=== PATIENT | male | born 1980 | race Caucasian/White ===

== ENCOUNTER → 2017-05-27 | Outpatient (CLI) | payer BC | END | disposition home or self-care (01) | LOC: RT 10:07 | PROVIDERS: ATTEND Physician Assistant Medical | DX: G47.33 Obstructive sleep apnea (adult) (pediatric) (principal); R06.83 Snoring; R45.1 Restlessness and agitation | CPT/HCPCS: G0399 ==

== ENCOUNTER → 2017-08-14 | Outpatient (CLI) | payer BC | END | disposition home or self-care (01) | LOC: RT 18:34 | PROVIDERS: ATTEND Family Medicine | DX: G47.33 Obstructive sleep apnea (adult) (pediatric) (principal) | CPT/HCPCS: 95811 ==

== ENCOUNTER 2022-01-19 02:07 | Inpatient (IN) | payer BC ==
[~2022-01-19] VITALS: Ht 185.4 cm; Wt 97.7 kg
[~2022-01-19 02:07] MED LIST: AMLO-187 PO; ASPI-886 PO; CARV6.2511 PO; ISOS10TA2 PO; LOSA-73 PO; THIA100T22 PO
--- NOTE | 2022-01-19 02:26 | PHYS DOC ---
Past Medical History Past Medical History: Other Additional Past Medical Histor: Sleep Apnea Past Surgical History: Other Additional Past Surgical Histo: HERNIA REPAIR Smoking Status: Current Every Day Smoker Alcohol Use: Heavy General Adult HPI: HPI: Patient is a 41 year old male who is on no prescription medications presents with a chief complaint of shortness of breath. Patient states shortness of breath started around 2300hrs. Patient was having difficult sleeping tonight. States He could not get comfortable and could not catch his breath. Patient denies any associated chest pain. Patient is a smoker with a chronic cough. Denies any fevers or chills. Patient was noted to be tachycardic with a rate of 106bmp. His blood pressure was 272/151. Review of Systems: Review of Systems: Constitutional: Denies fever or chills. [] Eyes: Denies change in visual acuity. [] HENT: Denies nasal congestion or sore throat. [] Respiratory: Denies cough Positive shortness of breath. [] Cardiovascular: Denies chest pain or edema. [] GI: Denies abdominal pain, nausea, vomiting, bloody stools or diarrhea. [] : Denies dysuria. [] Musculoskeletal: Denies back pain or joint pain. [] Integument: Denies rash. [] Neurologic: Denies headache, focal weakness or sensory changes. [] Endocrine: Denies polyuria or polydipsia. [] Lymphatic: Denies swollen glands. [] Psychiatric: Denies depression or anxiety. [] Heart Score: C/O Chest Pain: N/A Risk Factors: Risk Factors: DM, Current or recent (<one month) smoker, HTN, HLP, family history of CAD, obesity. Risk Scores: Score 0 - 3: 2.5% MACE over next 6 weeks - Discharge Home Score 4 - 6: 20.3% MACE over next 6 weeks - Admit for Clinical Observation Score 7 - 10: 72.7% MACE over next 6 weeks - Early Invasive Strategies Allergies: Allergies: Allergies Coded Allergies Type Severity Reaction Last Updated Verified No Known Drug Allergies 01/16/21 No Physical Exam: PE: Constitutional: Well developed, well nourished, no acute distress, non-toxic appearance. [] HENT: Normocephalic, atraumatic, bilateral external ears normal, oropharynx moist, no oral exudates, nose normal. [] Eyes: PERRLA, EOMI, conjunctiva normal, no discharge. [] Neck: Normal range of motion, no tenderness, supple, no stridor. [] Cardiovascular:Heart rate regular rhythm, no murmur [] Lungs & Thorax: Bilateral breath sounds clear to auscultation [] Abdomen: Bowel sounds normal, soft, no tenderness, no masses, no pulsatile masses. [] Skin: Warm, dry, no erythema, no rash. [] Back: No tenderness, no CVA tenderness. [] Extremities: No tenderness, no cyanosis, no clubbing, ROM intact, bilateral pedal edema. [] Neurologic: Alert and oriented X 3, normal motor function, normal sensory function, no focal deficits noted. [] Psychologic: Affect normal, judgement normal, mood normal. [] EKG: EKG: Performed at 221 Rate 101 Normal sinus rhythm No ST elevation No ST depression No acute [place] [] Radiology/Procedures: Radiology/Procedures: [] Course & Med Decision Making: Course & Med Decision Making Pertinent Labs and Imaging studies reviewed. (See chart for details) [] Patient was evaluated for chief complaint. Work-up consisted of laboratory analysis radiologic imaging and EKG. Results reviewed and discussed with patient Patient initial blood pressure on arrival greater than 200/100 systolic. Patient was treated with labetalol 20 mg with improvement of blood pressures to the 170s post treatment. Patient's initial heart rate greater than 100 bpm post labetalol heart rate 82. Patient's troponin noted to be 120 repeat 103-- treated with asa 324mg did not treat with heprin. BNP greater than 4000-- treated with lasix. Patient admitted to the hospitalist with cardiology consult. Kyaw Disclaimer: Kywa Disclaimer: This electronic medical record was generated, in whole or in part, using a voice recognition dictation system. Departure Departure Impression: Primary Impression: CHF (congestive heart failure) Additional Impressions: Dyspnea Elevated troponin Elevated brain natriuretic peptide (BNP) level Hypertension Disposition: 09 ADMITTED INPATIENT Admitting Physician: MEHRDAD Condition: IMPROVED Referrals: NO PCP (PCP) RAYMOND GOETZ DO Jan 19, 2022 02:26
[2022-01-19] MEDS ORDERED: LABETALOL 20 MG/4 ML DISP.SYRIN. IVP ONE (02:30)
[2022-01-19 02:38] LABS: BASO # 0.1 x10^3/uL (0.0-0.2); BASO % 1 % (0-3); EOS # 0.1 x10^3/uL (0.0-0.7); EOS % 2 % (0-3); HEMATOCRIT 39.9 % (39.0-53.0); HEMOGLOBIN 13.7 g/dL (13.0-17.5); LYMPH # 1.2 x10^3/uL (1.0-4.8); LYMPH % 18 % (24-48); MEAN CORPUSCULAR HEMOGLOBIN 36 pg (25-35); MEAN CORPUSCULAR HGB CONC 34 g/dL (31-37); MEAN CORPUSCULAR VOLUME 104 fL (79-100); MONO # 0.5 x10^3/uL (0.0-1.1); MONO % 8 % (0-9); NEUT # 4.4 x10^3/uL (1.8-7.7); NEUT % 70 % (31-73); PLATELET COUNT 147 x10^3/uL (140-400); RED BLOOD COUNT 3.85 x10^6/uL (4.30-5.70); RED CELL DISTRIBUTION WIDTH 13.6 % (11.5-14.5); WHITE BLOOD COUNT 6.3 x10^3/uL (4.0-11.0)
[2022-01-19 02:48] LABS: CALCIUM 8.8 mg/dL (8.5-10.1); CREATININE 1.2 mg/dL (0.7-1.3); GFR 66.4; POTASSIUM 3.5 mmol/L (3.5-5.1)
--- NOTE | 2022-01-19 02:50 | RAD ---
EXAMINATION: XR CHEST 1V CLINICAL HISTORY: Shortness of breath. EXAM DATE/TIME: 01/19/2022 2:30 AM COMPARISON: 01/16/2021 FINDINGS: Lines, Tubes, and Devices: None. Cardiomediastinal Silhouette: Prominent cardiac silhouette, likely accentuated by AP portable techniq ue. Lungs and Pleura: Mild interstitial and multifocal patchy alveolar opacities, similar to slightly inc reased compared to prior study. No evidence of pleural effusion or pneumothorax. Bones and Soft Tissues: No acute osseous abnormality. IMPRESSION: Interstitial and multifocal patchy alveolar opacities, possibly related to edema and/or atypical/shannan l pneumonia. Electronically signed by: Terrance Phillips DO (01/19/2022 2:47 AM) YULISA
[2022-01-19 02:53] LABS: ALBUMIN 3.2 g/dL (3.4-5.0); ALBUMIN/GLOBULIN RATIO 0.7 (1.0-1.7); TOTAL BILIRUBIN 0.6 mg/dL (0.2-1.0); TOTAL PROTEIN 7.5 g/dL (6.4-8.2)
[2022-01-19] MEDS ORDERED: FUROSEMIDE 40 MG/4 ML VIAL. IVP SCH ×2 (03:39→09:00)
[2022-01-19 03:56] LABS: PROTHROMBIN TIME PATIENT 12.8 SEC (11.7-14.0)
[2022-01-19] MEDS ORDERED: ASPIRIN 325 MG TABLET ONE (05:29)
[2022-01-19] MEDS ORDERED: ASPIRIN CHEWABLE 81 MG TABLET. PO ONE (05:30)
[2022-01-19 06:06] LABS: RBC,URINE TNTC /HPF (0-2); WBC,URINE 0 /HPF (0-4)
[2022-01-19 06:07] LABS: BACTERIA,URINE 0 /HPF (0-FEW); HYALINE CASTS, URINE OCCASIONAL /HPF
[2022-01-19 06:08] VITALS: BP 201/118
[2022-01-19 07:00] VITALS: BP 177/119
--- NOTE | 2022-01-19 07:13 | EKG ---
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
--- NOTE | 2022-01-19 07:27 | PDOC1 ---
History and Physical Date of Admission Date of Admission DATE: 01/19/22 TIME: 07:14 Identification/Chief Complaint Chief Complaint Chest pain Source Source: Chart review, Patient History of Present Illness History of Present Illness Mr Noland is a 41 year old male w/ PMHx SIMRAN, overweight, smoker, heavy ETOH use who is on no prescription medications presents with a chief complaint of shortness of breath. Started around 2300hrs suddenly, causing difficulty with sleep. Unable to lay flat to catch his breath. No chest pain. Chronic cough he endorses to be due to smoking. For a couple of weeks he has been feeling unwell with posterior headaches and fatigue. He denies any kind of significant cough, URI symptoms, fever, chills, sweats, nausea, vomiting. 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 He drinks a "few shots" every evening. Has not seen a physician in several years. Smokes 1ppd. Lives at home with his and 8 yo daughter. He was hospitalized for the same 1 year ago. Patient was noted to be tachycardic with a rate of 106bmp. His blood pressure was 272/151. Labs with WBC 6.3, Hb 13.7 with MCV 104, platelets 147, INR 1, NA 135, K3.5, BUN 15, CR 1.2, glucose 128, calcium 8.8, bilirubin 0.6, AST 50, ALT 46, alkaline phosphatase 110, albumin 3.2, NT proBNP is 4555, initial high-sensitivity troponin was 122 follow-up was 103. Chest radiograph with interstitial and multifocal patchy alveolar opacities Given IV Lasix IV labetalol and admitted for further care. Past Medical History Cardiovascular: HTN Pulmonary: Other Psych: Anxiety, Addictions, Depression Past Surgical History Past Surgical History Reviewed Past Surgical History: No pertinent history Family History Family History Reviewed Family History: Diabetes, Hypertension Social History Smoke: 1 pack per day ALCOHOL: heavy Drugs: None Current Problem List Problem List Problems Medical Problems: (1) Hypertension Status: Acute Current Medications Current Medications Current Medications Labetalol HCl (Normodyne Iv Push) 20 mg 1X ONCE IVP Last administered on 01/19/22at 02:42; Start 01/19/22 at 02:30; Stop 01/19/22 at 02:31; Status DC Furosemide (Lasix) 40 mg DAILY IVP Last administered on 01/19/22at 05:34; Start 01/19/22 at 03:39 Aspirin (Aspirin Chewable) 324 mg 1X ONCE PO Last administered on 01/19/22at 05:36; Start 01/19/22 at 05:30; Stop 01/19/22 at 05:31; Status DC Aspirin (Galileo Aspirin) 325 mg STK-MED ONCE .ROUTE ; Start 01/19/22 at 05:29; Stop 01/19/22 at 05:29; Status DC Active Scripts Active Reported No Known Medications Prior To Admisstion (Info) Each 1 Each Allergies Allergies: Coded Allergies: No Known Drug Allergies (Unverified , 01/16/21) Vitals Vitals Vital Signs Date Time Temp Pulse Resp B/P (MAP) Pulse Ox O2 Delivery O2 Flow Rate FiO2 01/19/22 06:08 98.1 83 20 201/118 (145) 98 Room Air 98.1 Labs Labs Laboratory Tests Test 01/19/22 02:32 01/19/22 04:59 01/19/22 05:40 White Blood Count 6.3 x10^3/uL (4.0-11.0) Red Blood Count 3.85 x10^6/uL (4.30-5.70) Hemoglobin 13.7 g/dL (13.0-17.5) Hematocrit 39.9 % (39.0-53.0) Mean Corpuscular Volume 104 fL (79-100) Mean Corpuscular Hemoglobin 36 pg (25-35) Mean Corpuscular Hemoglobin Concent 34 g/dL (31-37) Red Cell Distribution Width 13.6 % (11.5-14.5) Platelet Count 147 x10^3/uL (140-400) Neutrophils (%) (Auto) 70 % (31-73) Lymphocytes (%) (Auto) 18 % (24-48) Monocytes (%) (Auto) 8 % (0-9) Eosinophils (%) (Auto) 2 % (0-3) Basophils (%) (Auto) 1 % (0-3) Neutrophils # (Auto) 4.4 x10^3/uL (1.8-7.7) Lymphocytes # (Auto) 1.2 x10^3/uL (1.0-4.8) Monocytes # (Auto) 0.5 x10^3/uL (0.0-1.1) Eosinophils # (Auto) 0.1 x10^3/uL (0.0-0.7) Basophils # (Auto) 0.1 x10^3/uL (0.0-0.2) Prothrombin Time 12.8 SEC (11.7-14.0) Prothromb Time International Ratio 1.0 (0.8-1.1) Activated Partial Thromboplast Time 30 SEC (24-38) Sodium Level 135 mmol/L (136-145) Potassium Level 3.5 mmol/L (3.5-5.1) Chloride Level 100 mmol/L (98-107) Carbon Dioxide Level 25 mmol/L (21-32) Anion Gap 10 (6-14) Blood Urea Nitrogen 15 mg/dL (8-26) Creatinine 1.2 mg/dL (0.7-1.3) Estimated GFR (Cockcroft-Gault) 66.4 BUN/Creatinine Ratio 13 (6-20) Glucose Level 128 mg/dL (70-99) Calcium Level 8.8 mg/dL (8.5-10.1) Total Bilirubin 0.6 mg/dL (0.2-1.0) Aspartate Amino Transf (AST/SGOT) 50 U/L (15-37) Alanine Aminotransferase (ALT/SGPT) 46 U/L (16-63) Alkaline Phosphatase 110 U/L (46-116) Troponin I High Sensitivity 120 ng/L (4-75) 103 ng/L (4-75) RE-Chh-A-Type Natriuretic Peptide 4555 pg/mL (0-124) Total Protein 7.5 g/dL (6.4-8.2) Albumin 3.2 g/dL (3.4-5.0) Albumin/Globulin Ratio 0.7 (1.0-1.7) Urine Collection Type Unknown Urine Color (Auto) Light orange Urine Turbidity Hazy Urine pH (Auto) 7.5 (<5.0-8.0) Urine Specific [place] 1.016 (1.000-1.030) Urine Protein (Auto) 200 mg/dL (Negative) Urine Glucose (Auto)(UA) Negative mg/dL (Negative) Urine Ketones (Auto) Negative mg/dL (Negative) Urine Blood (Auto) Large (Negative) Urine Nitrite Negative (Negative) Urine Bilirubin (Auto) Negative (Negative) Urine Urobilinogen (Auto) Normal mg/dL (Normal) Urine Leukocyte Esterase (Auto) Negative (Negative) Urine RBC Tntc /HPF (0-2) Urine WBC 0 /HPF (0-4) Urine Bacteria 0 /HPF (0-FEW) Urine Hyaline Casts Occasional /HPF Urine Mucus Slight /LPF Laboratory Tests Test 01/19/22 02:32 01/19/22 04:59 01/19/22 05:40 White Blood Count 6.3 x10^3/uL (4.0-11.0) Red Blood Count 3.85 x10^6/uL (4.30-5.70) Hemoglobin 13.7 g/dL (13.0-17.5) Hematocrit 39.9 % (39.0-53.0) Mean Corpuscular Volume 104 fL (79-100) Mean Corpuscular Hemoglobin 36 pg (25-35) Mean Corpuscular Hemoglobin Concent 34 g/dL (31-37) Red Cell Distribution Width 13.6 % (11.5-14.5) Platelet Count 147 x10^3/uL (140-400) Neutrophils (%) (Auto) 70 % (31-73) Lymphocytes (%) (Auto) 18 % (24-48) Monocytes (%) (Auto) 8 % (0-9) Eosinophils (%) (Auto) 2 % (0-3) Basophils (%) (Auto) 1 % (0-3) Neutrophils # (Auto) 4.4 x10^3/uL (1.8-7.7) Lymphocytes # (Auto) 1.2 x10^3/uL (1.0-4.8) Monocytes # (Auto) 0.5 x10^3/uL (0.0-1.1) Eosinophils # (Auto) 0.1 x10^3/uL (0.0-0.7) Basophils # (Auto) 0.1 x10^3/uL (0.0-0.2) Prothrombin Time 12.8 SEC (11.7-14.0) Prothromb Time International Ratio 1.0 (0.8-1.1) Activated Partial Thromboplast Time 30 SEC (24-38) Sodium Level 135 mmol/L (136-145) Potassium Level 3.5 mmol/L (3.5-5.1) Chloride Level 100 mmol/L (98-107) Carbon Dioxide Level 25 mmol/L (21-32) Anion Gap 10 (6-14) Blood Urea Nitrogen 15 mg/dL (8-26) Creatinine 1.2 mg/dL (0.7-1.3) Estimated GFR (Cockcroft-Gault) 66.4 BUN/Creatinine Ratio 13 (6-20) Glucose Level 128 mg/dL (70-99) Calcium Level 8.8 mg/dL (8.5-10.1) Total Bilirubin 0.6 mg/dL (0.2-1.0) Aspartate Amino Transf (AST/SGOT) 50 U/L (15-37) Alanine Aminotransferase (ALT/SGPT) 46 U/L (16-63) Alkaline Phosphatase 110 U/L (46-116) Troponin I High Sensitivity 120 ng/L (4-75) 103 ng/L (4-75) OD-Htd-S-Type Natriuretic Peptide 4555 pg/mL (0-124) Total Protein 7.5 g/dL (6.4-8.2) Albumin 3.2 g/dL (3.4-5.0) Albumin/Globulin Ratio 0.7 (1.0-1.7) Urine Collection Type Unknown Urine Color (Auto) Light orange Urine Turbidity Hazy Urine pH (Auto) 7.5 (<5.0-8.0) Urine Specific [place] 1.016 (1.000-1.030) Urine Protein (Auto) 200 mg/dL (Negative) Urine Glucose (Auto)(UA) Negative mg/dL (Negative) Urine Ketones (Auto) Negative mg/dL (Negative) Urine Blood (Auto) Large (Negative) Urine Nitrite Negative (Negative) Urine Bilirubin (Auto) Negative (Negative) Urine Urobilinogen (Auto) Normal mg/dL (Normal) Urine Leukocyte Esterase (Auto) Negative (Negative) Urine RBC Tntc /HPF (0-2) Urine WBC 0 /HPF (0-4) Urine Bacteria 0 /HPF (0-FEW) Urine Hyaline Casts Occasional /HPF Urine Mucus Slight /LPF Images Images Chest radiograph AP only: Lines, Tubes, and Devices: None. Cardiomediastinal Silhouette: Prominent cardiac silhouette, likely accentuated by AP portable technique. Lungs and Pleura: Mild interstitial and multifocal patchy alveolar opacities, similar to slightly increased compared to prior study. No evidence of pleural effusion or pneumothorax. Bones and Soft Tissues: No acute osseous abnormality. IMPRESSION: Interstitial and multifocal patchy alveolar opacities, possibly related to edema and/or atypical/viral pneumonia. VTE Prophylaxis Ordered VTE Prophylaxis Devices: No VTE Pharmacological Prophylaxi: No Assessment/Plan Assessment/Plan Hypertensive emergency - likely multifactorial. Counseled on smoking and drinking cessation, CPAP compliance. Labetalol prn, hydralazine prn gtt. Start lasix IV, amlodipine, nitrate NSTEMI - will trend troponins, likely type II demand ischemia associated with HTN crisis Pulmonary edema - no concern for COVID 19, this looks to be acute CHF due to HTN emergency Smoker - counseled on cessation, offered nicotine patch Heavy ETOH use - no history of withdrawal or seizures, will place on CIWA as a precaution. Counseled on cessation Mild Transaminitis - likely from HTN emergency, congestive hepatopathy vs alcoholic hepatitis Macrocytosis - likely ETOH related, normal B12 and TSH last year SIMRAN - ok for home CPAP FEN - Regular diet PPX - heparin FULL CODE Dispo - inpatient for above Justifications for Admission Other Justification JOHNNA JIMÉNEZ MD Jan 19, 2022 07:27
[2022-01-19] MEDS ORDERED: LABETALOL 20 MG/4 ML DISP.SYRIN. IVP PRN (07:30)
[2022-01-19] MEDS ORDERED: ACETAMINOPHEN 325 MG TABLET. PO PRN (07:30)
[2022-01-19] MEDS ORDERED: ONDANSETRON PF 4 MG/2 ML VIAL. IVP PRN (07:30)
[2022-01-19] MEDS ORDERED: NICOTINE 21MG PATCH. TD PRN (07:30)
[2022-01-19] MEDS ORDERED: hydrALAZINE 20 MG/ML VIAL. IVP PRN (07:30)
[2022-01-19] MEDS: NITROGLYCERIN OINT 1 GM PACKET. TP SCH ×3 (08:21→18:00)
[2022-01-19] MEDS ORDERED: MULTIVITAMIN with MINERAL TABLET. PO SCH (09:00)
[2022-01-19] MEDS ORDERED: THIAMINE 100 MG TABLET. PO SCH (09:00)
[2022-01-19] MEDS ORDERED: FOLIC ACID 1 MG TABLET. PO SCH (09:00)
--- NOTE | 2022-01-19 10:37 | RAD ---
EXAM: Corral scale and color Doppler renal artery sonogram. HISTORY: Hypertensive crisis. TECHNIQUE: Corral scale and color Doppler sonographic imaging the kidneys and renal arteries with spect ral analysis was performed. COMPARISON: None. FINDINGS: The right kidney and right renal artery are obscured due to bowel gas. The left kidney is n ormal in size. There is no hydronephrosis or solid or cystic left renal lesion. There are normal left renal artery peak systolic velocities and renal artery to aorta velocity ratios. There is incidental hepatic steatosis. IMPRESSION: 1. Unremarkable grayscale evaluation of the left kidney and no evidence of left renal artery stenosis . 2. Obscured right kidney and renal artery. 3. Hepatic steatosis. Electronically signed by: Melody Umaña MD (01/19/2022 10:34 AM) [facility]
[2022-01-19] MEDS ORDERED: NICOTINE 21MG PATCH. TD SCH (10:45)
[2022-01-19 11:00] VITALS: BP 144/96
[2022-01-19] MEDS ORDERED: hydroCHLOROthiazide 12.5 MG TABLET PO ONE (11:00)
--- NOTE | 2022-01-19 11:20 | PDOC2 ---
GABRIELA COE SPRAY BLENDER 01/19/22 1120: CARDIAC CONSULT DATE OF CONSULT Date of Consult DATE: 01/19/22 TIME: 10:51 REASON FOR CONSULT Reason for Consult: CHF, elevated trop REFERRING PHYSICIAN Referring Physician: Yusuf SOURCE Source: Chart review, Patient HISTORY OF PRESENT ILLNESS HISTORY OF PRESENT ILLNESS This is a pleasant 41 yo male admitted for complains of shortness of breath. Reports that he does have SOA in the last few days but pronounced last night to a point that he is not able to lay flat and has PND. Denies any chest pain, palpitations. No nausea or vomiting and denies any leg swelling. He is supposed to take BP meds but he stopped at least 6 months ago as he failed to make a refill. He drinks vodka and smokes tobacco and has not had any ischemic workup in the past. PAST MEDICAL HISTORY Cardiovascular: HTN Psych: Anxiety PAST SURGICAL HISTORY Past Surgical History: Hernia Repair FAMILY HISTORY Family History: Hypertension SOCIAL HISTORY Smoke: 1 pack per day ALCOHOL: heavy Drugs: None Lives: with Family CURRENT MEDICATIONS CURRENT MEDICATIONS Current Medications Medications (Trade) Dose Ordered Sig/Catherine Route PRN Reason Start Time Stop Time Status Last Admin Dose Admin Labetalol HCl (Normodyne Iv Push) 20 mg 1X ONCE IVP 01/19/22 02:30 01/19/22 02:31 DC 01/19/22 02:42 Furosemide (Lasix) 40 mg DAILY IVP 01/19/22 03:39 01/19/22 07:32 DC 01/19/22 05:34 Aspirin (Aspirin Chewable) 324 mg 1X ONCE PO 01/19/22 05:30 01/19/22 05:31 DC 01/19/22 05:36 Nitroglycerin (Nitro-Bid Oint) 1 inch Q6HRS TP 01/19/22 07:30 01/19/22 08:21 Furosemide (Lasix) 40 mg [id number] IVP 01/19/22 09:00 01/19/22 10:36 DC 01/19/22 09:02 Amlodipine Besylate (Norvasc) 10 mg DAILY PO 01/19/22 09:00 01/19/22 09:02 Multivitamins (Thera M Plus) 1 tab DAILY PO 01/19/22 09:00 01/19/22 09:04 Folic Acid (Folic Acid) 1 mg DAILY PO 01/19/22 09:00 01/19/22 09:01 Thiamine Mononitrate (Vitamin B-1) 100 mg DAILY PO 01/19/22 09:00 01/19/22 09:01 ALLERGIES ALLERGIES: Coded Allergies: No Known Drug Allergies (Unverified , 01/16/21) ROS Review of System 14 point ROS evaluated with pertinent positives noted per HPI PHYSICAL EXAM General: Alert, Oriented X3, Cooperative, No acute distress HEENT: Atraumatic, Mucous membr. moist/pink Lungs: Clear to auscultation, Normal air movement Heart: Regular rate (SR), Normal S1, Normal S2, No murmurs, Other (S4) Abdomen: Soft, No tenderness Extremities: No cyanosis, No edema Skin: No breakdown, No significant lesion Neuro: Normal speech, Sensation intact Psych/Mental Status: Mental status NL, Mood NL MUSCULOSKELETAL: Full range of motion without pain VITALS/I&O VITALS/I&O: Vital Signs Date Time Temp Pulse Resp B/P (MAP) Pulse Ox O2 Delivery O2 Flow Rate FiO2 01/19/22 09:02 86 117/119 01/19/22 07:00 97.9 18 98 97.9 01/19/22 06:08 Room Air I & O 01/18/22 01/18/22 01/19/22 14:59 22:59 06:59 Output Total 300 ml Balance -300 ml LABS Lab: Laboratory Tests Test 01/19/22 02:32 01/19/22 04:59 01/19/22 05:40 White Blood Count 6.3 x10^3/uL (4.0-11.0) Red Blood Count 3.85 x10^6/uL (4.30-5.70) L Hemoglobin 13.7 g/dL (13.0-17.5) Hematocrit 39.9 % (39.0-53.0) Mean Corpuscular Volume 104 fL (79-100) H Mean Corpuscular Hemoglobin 36 pg (25-35) H Mean Corpuscular Hemoglobin Concent 34 g/dL (31-37) Red Cell Distribution Width 13.6 % (11.5-14.5) Platelet Count 147 x10^3/uL (140-400) Neutrophils (%) (Auto) 70 % (31-73) Lymphocytes (%) (Auto) 18 % (24-48) L Monocytes (%) (Auto) 8 % (0-9) Eosinophils (%) (Auto) 2 % (0-3) Basophils (%) (Auto) 1 % (0-3) Neutrophils # (Auto) 4.4 x10^3/uL (1.8-7.7) Lymphocytes # (Auto) 1.2 x10^3/uL (1.0-4.8) Monocytes # (Auto) 0.5 x10^3/uL (0.0-1.1) Eosinophils # (Auto) 0.1 x10^3/uL (0.0-0.7) Basophils # (Auto) 0.1 x10^3/uL (0.0-0.2) Prothrombin Time 12.8 SEC (11.7-14.0) Prothrombin Time INR 1.0 (0.8-1.1) Activated Partial Thromboplast Time 30 SEC (24-38) Sodium Level 135 mmol/L (136-145) L Potassium Level 3.5 mmol/L (3.5-5.1) Chloride Level 100 mmol/L (98-107) Carbon Dioxide Level 25 mmol/L (21-32) Anion Gap 10 (6-14) Blood Urea Nitrogen 15 mg/dL (8-26) Creatinine 1.2 mg/dL (0.7-1.3) Estimated GFR (Cockcroft-Gault) 66.4 BUN/Creatinine Ratio 13 (6-20) Glucose Level 128 mg/dL (70-99) H Calcium Level 8.8 mg/dL (8.5-10.1) Total Bilirubin 0.6 mg/dL (0.2-1.0) Aspartate Amino Transferase (AST) 50 U/L (15-37) H Alanine Aminotransferase (ALT) 46 U/L (16-63) Alkaline Phosphatase 110 U/L (46-116) Troponin I High Sensitivity 120 ng/L (4-75) H 103 ng/L (4-75) H WK-Jel-J-Type Natriuretic Peptide 4555 pg/mL (0-124) H Total Protein 7.5 g/dL (6.4-8.2) Albumin 3.2 g/dL (3.4-5.0) L Albumin/Globulin Ratio 0.7 (1.0-1.7) L Urine Collection Type Unknown Urine Color (Auto) Light orange Urine Turbidity Hazy Urine pH (Auto) 7.5 (<5.0-8.0) Urine Specific [place] 1.016 (1.000-1.030) Urine Protein (Auto) 200 mg/dL (Negative) Urine Glucose (Auto)(UA) Negative mg/dL (Negative) Urine Ketones (Auto) Negative mg/dL (Negative) Urine Blood (Auto) Large (Negative) Urine Nitrite Negative (Negative) Urine Bilirubin (Auto) Negative (Negative) Urine Urobilinogen (Auto) Normal mg/dL (Normal) Urine Leukocyte Esterase (Auto) Negative (Negative) Urine RBC Tntc /HPF (0-2) Urine WBC 0 /HPF (0-4) Urine Bacteria 0 /HPF (0-FEW) Urine Hyaline Casts Occasional /HPF Urine Mucus Slight /LPF Laboratory Tests 01/19/22 02:32 Laboratory Tests 01/19/22 02:32 ECHOCARDIOGRAM ECHOCARDIOGRAM <Conclusion> The left ventricular systolic function is normal and the ejection fraction is within normal range. The Ejection Fraction is 60-65%. There is normal LV segmental wall motion. The ascending aorta is mildly dilated measuring 3.51 cm. DATE: 01/17/21 [id number] ASSESSMENT/PLAN ASSESSMENT/PLAN 1. Acute on chronic diastolic CHF 2. HTN urgency 3. Mild troponin elevation: suspect demand mediated, type 2. 4. Noncompliance: has not taken BP meds for at least 6 months 5. Suspect ETOH misuse: reported 2 shots of vodka nightly 6. Tobaccoism Recommendations 1. ASA, statin per lipid level 2. Continue norvasc. Start on coreg and HCTZ. Received lasix overnight 3. TTE today. 4. Follow up with Dr. Barba on February 28 1:45 PM 5. Outpt MPI 6. HBPM, discussed adherance to treament and lifestyle modification RODERICK WORLEY MD 01/19/22 1435: CARDIAC CONSULT ASSESSMENT/PLAN ASSESSMENT/PLAN Patient seen and examined He is feeling mildly better today. I agree with our nurse practitioners assessment and plan. 1. Acute on chronic diastolic CHF mildly improved on medical treatment and improved blood pressure control. 2. HTN urgency. Norvasc, Coreg and hydrochlorothiazide. Continuing to monitor. 3. Mild troponin elevation: suspect demand mediated, type 2. Echo pending. Outpatient stress testing and follow-up. 4. Noncompliance: has not taken BP meds for at least 6 months 5. EtOH and tobacco abuse. GABRIELA COE [employer]ER Jan 19, 2022 11:20 RODERICK WORLEY MD Jan 19, 2022 17:57
[2022-01-19 11:49] LABS: CHOLESTEROL/HDL RATIO 3.2
[2022-01-19] MEDS ORDERED: ASPIRIN ENTERIC COATED 81 MG TABLET.DR. PO SCH (12:00)
--- NOTE | 2022-01-19 14:59 | NUR ---
SS following for discharge planning. SS reviewed pt chart and discussed with pt RN. Pt is from home with spouse and is currently on room air. Cardiology consulted. SS will continue to follow for discharge planning.
[2022-01-19 15:00] VITALS: BP 146/103
[2022-01-19] MEDS ORDERED: CARV6.2511 PO (15:46)
[2022-01-19] MEDS ORDERED: AMLO-187 PO (15:46)
[2022-01-19] MEDS ORDERED: ASPI-886 PO (15:46)
[2022-01-19] MEDS ORDERED: LOSARTAN POTASSIUM 50 MG TABLET. PO SCH (16:30)
[2022-01-19 16:34] VITALS: BP 146/103
[2022-01-19] MEDS ORDERED: CARVEDILOL 6.25 MG TABLET. PO SCH (17:00)
[2022-01-19] MEDS ORDERED: LOSA-73 PO (17:02)
--- NOTE | 2022-01-19 18:02 | NUR ---
Pt. discharged home with self care at 1750. Pt. stable at the time of discharge. Bp-131/75, 88
--- NOTE | 2022-01-19 18:31 | CARD ---
MR#: [id number] Date of Study: 01/19/2022 Ordering Physician: GABRIELA COE, Referring Physician: GABRIELA COE Tech: Roseanna Myers [facility] APPROVED REPORT EXAM: Two-dimensional and M-mode echocardiogram with Doppler and color Doppler. Other Information Quality : Technically LimitedHR: 89bpm Rhythm : NSR INDICATION Chest Pain RISK FACTORS Hypertension Obesity Hyperlipidemia 2D DIMENSIONS RVDd3.1 (2.9-3.5cm)Left Atrium(2D)3.7 (1.6-4.0cm) IVSd1.9 (0.7-1.1cm)Aortic Root(2D)3.2 (2.0-3.7cm) LVDd3.5 (3.9-5.9cm)LVOT Diameter2.4 (1.8-2.4cm) PWd2.2 (0.7-1.1cm)LVDs2.4 (2.5-4.0cm) FS (%) 32.4 %SV31.5 ml Aortic Valve AoV Peak Adalberto.209.5cm/sAoV VTI34.9cm AO Peak GR.17.6mmHgLVOT Peak Adalberto.201.0cm/s AO Mean GR.10mmHgAVA (VMAX)4.29cm2 Mitral Valve MV E Zbcqxkxm538.7cm/sMV DECEL [id number] MV A Hdmnbdue925.7cm/sE/A Ratio0.9 LEFT VENTRICLE The left ventricle is normal size. There is moderate concentric left ventricular hypertrophy. The lef t ventricular systolic function is normal and the ejection fraction is within normal range. LV ejecti on fraction of 60 to 65%. There is normal LV segmental wall motion. Transmitral Doppler flow pattern is Grade II-pseudonormal filling dynamics. RIGHT VENTRICLE The right ventricle is normal size. There is normal right ventricular wall thickness. The right ventr icular systolic function is normal. ATRIA The left atrium size is normal. The right atrium size is normal. The interatrial septum is intact wit h no evidence for an atrial septal defect or patent foramen ovale as noted on 2-D or Doppler imaging. AORTIC VALVE The aortic valve is normal in structure and function. Doppler and Color Flow revealed no significant aortic regurgitation. There is no significant aortic valvular stenosis. MITRAL VALVE The mitral valve is normal in structure and function. There is no evidence of mitral valve prolapse. There is no mitral valve stenosis. Doppler and Color Flow revealed no mitral valve regurgitation note d. TRICUSPID VALVE The tricuspid valve is normal in structure and function. Doppler and Color Flow revealed trace tricus pid regurgitation. There is no tricuspid valve stenosis. PULMONIC VALVE The pulmonary valve is normal in structure and function. Doppler and Color Flow revealed no pulmonic valvular regurgitation. GREAT VESSELS The aortic root is normal in size. The ascending aorta is normal in size. The IVC is normal in size a nd collapses >50% with inspiration. PERICARDIAL EFFUSION There is no evidence of significant pericardial effusion. Critical Notification Critical Value: No <Conclusion> The left ventricle is normal size. The left ventricular systolic function is normal and the ejection fraction is within normal range. LV ejection fraction of 60 to 65%. There is normal LV segmental wall motion. There is moderate concentric left ventricular hypertrophy. Doppler and Color Flow revealed no significant aortic regurgitation. There is no significant aortic valvular stenosis. Doppler and Color Flow revealed no mitral valve regurgitation noted. Doppler and Color Flow revealed trace tricuspid regurgitation. Signed by : Emanuel Hou MD Electronically Approved : 01/19/2022 18:30:35
[2022-01-20] MEDS ORDERED: hydroCHLOROthiazide 12.5 MG TABLET PO SCH (09:00)
== END 2022-01-19 17:50 | disposition home or self-care (01) | DRG 280 ==
LOC: ER 02:07 → 6 SOUTH 03:42
PROVIDERS: ADMIT Internal Medicine; ATTEND Internal Medicine
DX: I11.0 Hypertensive heart disease with heart failure (principal); I50.33 Acute on chronic diastolic (congestive) heart failure; I21.A1 Myocardial infarction type 2; I16.1 Hypertensive emergency; F17.210 Nicotine dependence, cigarettes, uncomplicated; G47.33 Obstructive sleep apnea (adult) (pediatric); Z82.49 Family history of ischemic heart disease and other diseases of the circulatory system; Z83.3 Family history of diabetes mellitus; Z91.19 Patient's noncompliance with other medical treatment and regimen; F32.A Depression, unspecified; F41.9 Anxiety disorder, unspecified; Z71.6 Tobacco abuse counseling; Z79.899 Other long term (current) drug therapy
CPT/HCPCS: 36415; 71045; 76770; 80053; 80061; 81001; 83880; 84484; 85025; 85610; 85730; 93005; 93306; J1940; J3490; C8929; G0378

== ENCOUNTER 2022-01-19 22:17 | Inpatient (IN) | payer BC ==
[~2022-01-19] VITALS: Ht 185.4 cm; Wt 91.7 kg
--- NOTE | 2022-01-19 22:56 | PHYS DOC ---
Past Medical History Past Medical History: Hypertension, Other Additional Past Medical Histor: Sleep Apnea (JACK SNOWDEN APRN) Past Surgical History: No Surgical History Additional Past Surgical Histo: HERNIA REPAIR (JACK SNOWDEN APRN) Smoking Status: Current Every Day Smoker Alcohol Use: None Drug Use: None (JACK SNOWDEN APRN) OBJECTIVE Vital Signs Vital Signs Date Time Temp Pulse Resp B/P (MAP) Pulse Ox O2 Delivery O2 Flow Rate FiO2 01/19/22 22:24 98.8 82 12 157/86 (109) 100 Room Air 98.8 (TONYA DEL RIO MD) COMMENT Lab Laboratory Tests Test 01/19/22 23:11 White Blood Count 6.4 x10^3/uL (4.0-11.0) Red Blood Count 3.97 x10^6/uL (4.30-5.70) Hemoglobin 14.3 g/dL (13.0-17.5) Hematocrit 40.4 % (39.0-53.0) Mean Corpuscular Volume 102 fL (79-100) Mean Corpuscular Hemoglobin 36 pg (25-35) Mean Corpuscular Hemoglobin Concent 35 g/dL (31-37) Red Cell Distribution Width 13.7 % (11.5-14.5) Platelet Count 162 x10^3/uL (140-400) Neutrophils (%) (Auto) 64 % (31-73) Lymphocytes (%) (Auto) 23 % (24-48) Monocytes (%) (Auto) 9 % (0-9) Eosinophils (%) (Auto) 3 % (0-3) Basophils (%) (Auto) 1 % (0-3) Neutrophils # (Auto) 4.1 x10^3/uL (1.8-7.7) Lymphocytes # (Auto) 1.5 x10^3/uL (1.0-4.8) Monocytes # (Auto) 0.6 x10^3/uL (0.0-1.1) Eosinophils # (Auto) 0.2 x10^3/uL (0.0-0.7) Basophils # (Auto) 0.1 x10^3/uL (0.0-0.2) Sodium Level 134 mmol/L (136-145) Potassium Level 3.6 mmol/L (3.5-5.1) Chloride Level 96 mmol/L (98-107) Carbon Dioxide Level 27 mmol/L (21-32) Anion Gap 11 (6-14) Blood Urea Nitrogen 20 mg/dL (8-26) Creatinine 1.2 mg/dL (0.7-1.3) Estimated GFR (Cockcroft-Gault) 66.4 BUN/Creatinine Ratio 17 (6-20) Glucose Level 97 mg/dL (70-99) Calcium Level 9.2 mg/dL (8.5-10.1) Total Bilirubin 1.0 mg/dL (0.2-1.0) Aspartate Amino Transf (AST/SGOT) 38 U/L (15-37) Alanine Aminotransferase (ALT/SGPT) 43 U/L (16-63) Alkaline Phosphatase 101 U/L (46-116) Troponin I High Sensitivity 80 ng/L (4-75) OT-Exz-K-Type Natriuretic Peptide 3434 pg/mL (0-124) Total Protein 7.2 g/dL (6.4-8.2) Albumin 3.4 g/dL (3.4-5.0) Albumin/Globulin Ratio 0.9 (1.0-1.7) (TONYA DEL RIO MD) General Adult EDM: Chief Complaint: DIZZY/LIGHT HEADED HPI: HPI: Patient is a 41-year-old male that presents today with left facial numbness and slurred speech. Patient was released from the hospital today around 515, he states that he went home and around 530 today he started experiencing left facial numbness and slurred speech, he says he also does not feel right so he decided to come back to the hospital for further evaluation of this. Patient was admitted last night and was seen by cardiology today and placed on 4 new medications which include amlodipine, carvedilol, aspirin, and losartan, patient states he has not taken any of his medications he said he was given most of them today this morning and he was to start most of them tomorrow. Patient states that when he got home he started having some slurred speech and numbness in his left face, and he was concerned that it was related to his heart. Patient's current blood pressure was 158 systolically. Patient denies chest pain, or shortness of breath. (JACK SNOWDEN APRN) Review of Systems: Review of Systems: Constitutional: Denies fever or chills. [] Eyes: Denies change in visual acuity. [] HENT: Denies nasal congestion or sore throat. [] Respiratory: Denies cough or shortness of breath. [] Cardiovascular: Denies chest pain or edema. [] GI: Denies abdominal pain, nausea, vomiting, bloody stools or diarrhea. [] : Denies dysuria. [] Musculoskeletal: Denies back pain or joint pain. [] Integument: Denies rash. [] Neurologic: Slurred speech and left facial numbness denies headache [] Endocrine: Denies polyuria or polydipsia. [] Lymphatic: Denies swollen glands. [] Psychiatric: Denies depression or anxiety. [] (JACK SNOWDEN APRN) Heart Score: C/O Chest Pain: No Risk Factors: Risk Factors: DM, Current or recent (<one month) smoker, HTN, HLP, family history of CAD, obesity. Risk Scores: Score 0 - 3: 2.5% MACE over next 6 weeks - Discharge Home Score 4 - 6: 20.3% MACE over next 6 weeks - Admit for Clinical Observation Score 7 - 10: 72.7% MACE over next 6 weeks - Early Invasive Strategies (JACK SNOWDEN APRN) C/O Chest Pain: N/A (SOFY,RAYMOND I DO) Allergies: Allergies: Allergies Coded Allergies Type Severity Reaction Last Updated Verified No Known Drug Allergies 01/16/21 No (JACK SNOWDEN APRN) Physical Exam: PE: Constitutional: Well developed, well nourished, no acute distress, non-toxic appearance. [] HENT: Normocephalic, atraumatic, bilateral external ears normal, oropharynx moist, no oral exudates, nose normal. [] Eyes: PERRLA, EOMI, conjunctiva normal, no discharge. [] Neck: Normal range of motion, no tenderness, supple, no stridor. [] Cardiovascular:Heart rate regular rhythm, no murmur [] Lungs & Thorax: Bilateral breath sounds diminished bases with fine wheezes in the upper lobes Abdomen: Bowel sounds normal, soft, no tenderness, no masses, no pulsatile masses. [] Skin: Warm, dry, no erythema, no rash. [] Back: No tenderness, no CVA tenderness. [] Extremities: No tenderness, no cyanosis, no clubbing, ROM intact, no edema, peripheral pulses are 2+ Neurologic: Alert and oriented X 3, normal motor function, normal sensory function, no focal deficits noted. [] Psychologic: Affect normal, judgement normal, mood normal. [] (JACK SNOWDEN APRN) Current Patient Data: Labs: Laboratory Tests Test 01/19/22 23:11 White Blood Count 6.4 x10^3/uL Red Blood Count 3.97 x10^6/uL Hemoglobin 14.3 g/dL Hematocrit 40.4 % Mean Corpuscular Volume 102 fL Mean Corpuscular Hemoglobin 36 pg Mean Corpuscular Hemoglobin Concent 35 g/dL Red Cell Distribution Width 13.7 % Platelet Count 162 x10^3/uL Neutrophils (%) (Auto) 64 % Lymphocytes (%) (Auto) 23 % Monocytes (%) (Auto) 9 % Eosinophils (%) (Auto) 3 % Basophils (%) (Auto) 1 % Neutrophils # (Auto) 4.1 x10^3/uL Lymphocytes # (Auto) 1.5 x10^3/uL Monocytes # (Auto) 0.6 x10^3/uL Eosinophils # (Auto) 0.2 x10^3/uL Basophils # (Auto) 0.1 x10^3/uL Sodium Level 134 mmol/L Potassium Level 3.6 mmol/L Chloride Level 96 mmol/L Carbon Dioxide Level 27 mmol/L Anion Gap 11 Blood Urea Nitrogen 20 mg/dL Creatinine 1.2 mg/dL Estimated GFR (Cockcroft-Gault) 66.4 BUN/Creatinine Ratio 17 Glucose Level 97 mg/dL Calcium Level 9.2 mg/dL Total Bilirubin 1.0 mg/dL Aspartate Amino Transf (AST/SGOT) 38 U/L Alanine Aminotransferase (ALT/SGPT) 43 U/L Alkaline Phosphatase 101 U/L Troponin I High Sensitivity 80 ng/L BH-Xcz-T-Type Natriuretic Peptide 3434 pg/mL Total Protein 7.2 g/dL Albumin 3.4 g/dL Albumin/Globulin Ratio 0.9 Current Medications Medications (Trade) Dose Ordered Sig/Catherine Route PRN Reason Start Time Stop Time Status Last Admin Dose Admin Iohexol (Omnipaque 350 Mg/ml) 75 ml 1X ONCE IV 01/19/22 23:00 01/19/22 23:03 DC 01/19/22 23:00 Info (CONTRAST GIVEN -- Rx MONITORING) 1 each PRN DAILY PRN MC SEE COMMENTS 01/19/22 23:15 01/21/22 23:14 Vital Signs: Vital Signs Date Time Temp Pulse Resp B/P (MAP) Pulse Ox O2 Delivery O2 Flow Rate FiO2 01/19/22 22:24 98.8 82 12 157/86 (109) 100 Room Air 98.8 (JACK SNOWDEN APRN) EKG: EKG: EKG done at [address] Goldberg at 2249 sinus rhythm at a rate of 78 with a MN interval of 128 ms with a QTC of 524 ms no STEMI [] (JACK SNOWDEN APRN) Radiology/Procedures: Radiology/Procedures: REASON: numbness in face PROCEDURE: CHEST AP ONLY XR CHEST 1V 01/19/2022 11:01 PM INDICATION: Numbness in the face COMPARISON: 01/19/2022 TECHNIQUE: Portable frontal view of the chest is provided. FINDINGS: The cardiomediastinal silhouette is within normal limits. Lungs are clear. There is improving perihilar interstitial changes. There are no significant pleural effusions. There is no pulmonary vascular congestion. No pneumothorax. No suspicious osseous abnormality. IMPRESSION: Improving perihilar interstitial airspace disease. Electronically signed by: Ashlee Cox MD (01/19/2022 11:25 PM) [facility] [] (JACK SNOWDEN APRN) Course & Med Decision Making: Course & Med Decision Making Pertinent Labs and Imaging studies reviewed. (See chart for details) [address] Del Rio, (JACK SNOWDEN APRN) Course & Med Decision Making I received signout on this patient at the beginning of my shift. I was told that he was here for dizziness and that a CTA was pending. I went to examine the patient and noticed that he was extremely somnolent. He has abnormal fin jonas-nose in his left hand. He has very much difficulty staying awake and following directions. He is able to follow commands and answer questions appropriately after repeated stimulation and asking. I received a call from the radiologist who stated that there is a concern for possible brainstem stroke. Spoke with our neurologist on-call who stated that I should consult with 's neurologist. I spoke with the neurologist at who stated that he does not require any intervention. Therefore I will attempt to have the patient admitted to our ICU here. He is currently protecting his airway and does not require any significant intervention however his condition may significantly deteriorate. Per the neurologist there is no need for any steroids at this time. I will give him an aspirin. I suspect a stroke could have been due to a low flow situation (TONYA DEL RIO MD) Dragon Disclaimer: Dragon Disclaimer: This electronic medical record was generated, in whole or in part, using a voice recognition dictation system. (JACK SNOWDEN APRN) Departure Departure Impression: Primary Impression: Brainstem stroke Disposition: ADMITTED INPATIENT Condition: CRITICAL Referrals: NO PCP (PCP) Additional Instructions: Discussed plan of care with CLINICAL EDUCATION ASSISTANT. At shift change 0000hrs-- Radiologic Imaging pending. Disposition pending labs radiologic imaging and re-evaluation. Patient signed out by CLINICAL EDUCATION ASSISTANT to on coming provider. NIHSS Stroke Scale NIH Stroke Scale: NIH Stroke Scale Response (Comments) Value Level of Consciousness: 0 Alert/Responsive 0 LOC Questions: 0 Answers both correctly 0 LOC Commands: 0 Performs both tasks 0 Best Gaze: 0 Normal 0 Visual: 0 No visual loss 0 Facial Palsy: 0 Normal, symmetrical 0 Motor - Left Arm 0 No drift 0 Motor - Right Arm 0 No drift 0 Motor - Left Leg 0 No drift 0 Motor: Right Leg 0 No drift 0 Limb Ataxia: 1 One limb 1 Sensory: 0 No loss 0 Best Language: 0 Normal 0 Dysathria: 0 Normal 0 Extinction and Inattention: 0 Normal 0 Total 1 JACK SNOWDEN APRN Jan 19, 2022 22:56 TONYA DEL RIO MD Jan 20, 2022 00:50 RAYMOND GOLDBERG DO Jan 22, 2022 02:32
[2022-01-19] MEDS ORDERED: IOHEXOL 350 MG/ML 100 ML VIAL. IV ONE (23:00)
[2022-01-19] MEDS ORDERED: CONTRAST GIVEN. MC PRN (23:15)
[2022-01-19 23:22] LABS: BASO # 0.1 x10^3/uL (0.0-0.2); BASO % 1 % (0-3); EOS # 0.2 x10^3/uL (0.0-0.7); EOS % 3 % (0-3); HEMATOCRIT 40.4 % (39.0-53.0); HEMOGLOBIN 14.3 g/dL (13.0-17.5); LYMPH # 1.5 x10^3/uL (1.0-4.8); LYMPH % 23 % (24-48); MEAN CORPUSCULAR HEMOGLOBIN 36 pg (25-35); MEAN CORPUSCULAR HGB CONC 35 g/dL (31-37); MEAN CORPUSCULAR VOLUME 102 fL (79-100); MONO # 0.6 x10^3/uL (0.0-1.1); MONO % 9 % (0-9); NEUT # 4.1 x10^3/uL (1.8-7.7); NEUT % 64 % (31-73); PLATELET COUNT 162 x10^3/uL (140-400); RED BLOOD COUNT 3.97 x10^6/uL (4.30-5.70); RED CELL DISTRIBUTION WIDTH 13.7 % (11.5-14.5); WHITE BLOOD COUNT 6.4 x10^3/uL (4.0-11.0)
--- NOTE | 2022-01-19 23:28 | RAD ---
XR CHEST 1V 01/19/2022 11:01 PM INDICATION: Numbness in the face COMPARISON: 01/19/2022 TECHNIQUE: Portable frontal view of the chest is provided. FINDINGS: The cardiomediastinal silhouette is within normal limits. Lungs are clear. There is improving perihil ar interstitial changes. There are no significant pleural effusions. There is no pulmonary vascular congestion. No pneumothora x. No suspicious osseous abnormality. IMPRESSION: Improving perihilar interstitial airspace disease. Electronically signed by: Ashlee Cox MD (01/19/2022 11:25 PM) [facility]SE [facility]IA
[2022-01-19 23:32] LABS: CALCIUM 9.2 mg/dL (8.5-10.1); CREATININE 1.2 mg/dL (0.7-1.3); GFR 66.4; POTASSIUM 3.6 mmol/L (3.5-5.1)
[2022-01-19 23:37] LABS: ALBUMIN 3.4 g/dL (3.4-5.0); ALBUMIN/GLOBULIN RATIO 0.9 (1.0-1.7); TOTAL PROTEIN 7.2 g/dL (6.4-8.2)
[2022-01-20] VITALS (24 sets, daily range): BP systolic 102–162; BP diastolic 64–100
--- NOTE | 2022-01-20 00:13 | RAD ---
EXAMINATION: CT HEAD/BRAIN WO CLINICAL HISTORY: Left facial numbness. TECHNIQUE: Serial axial images without IV contrast were obtained from the vertex to the foramen magnu m. CT Dose Reduction Employed: One or more of the following individualized dose reduction techniques samira e utilized for this examination: 1. Automated exposure control 2. Adjustment of the mA and/or kV ac cording to patient size 3. Use of iterative reconstruction technique. COMPARISON: None FINDINGS: Acute Change: No definitive evidence of an acute infarct or other acute parenchymal process. Question able enlarged [place] and midbrain with asymmetric hypoattenuation, nonspecific but may be related to ar tifact or ischemia. Hemorrhage: No evidence of acute intracranial hemorrhage. Mass Lesion/Mass Effect: No evidence of intracranial mass or extraaxial fluid collection. No signific ant mass effect. Chronic Change: Scattered patchy foci of hypoattenuation in the supratentorial white matter, nonspeci fic but likely represents mild microvascular ischemia. Atherosclerotic calcification of the intracran ial portion of the bilateral internal carotid arteries. Parenchyma: Mild generalized volume loss. Ventricles: Ventricular enlargement concordant with degree of parenchymal volume loss. Paranasal Sinuses and Skull Base: Complete opacification of the right maxillary sinus with thickened sclerotic anterior lateral sinus danielle and disruption of the medial wall, likely related to chronic s inusitis. Mild to moderate secretions in the right ethmoid air cells. Visualized skull base and soft tissues unremarkable. IMPRESSION: No definitive evidence of acute intracranial abnormality. Questionable enlarged hypodense [place] and midbrain, possibly related to artifact or ischemia. Correlat e clinically and consider MRI for further evaluation. Electronically signed by: Terrance Phillips DO (01/20/2022 12:10 AM) [facility]
--- NOTE | 2022-01-20 00:24 | RAD ---
EXAMINATION: CTA HEAD AND NECK W/WO CONTRAST CLINICAL HISTORY: Left facial numbness. TECHNIQUE: Spiral high resolution axial images were obtained through the head, neck and superior medi astinum following bolus administration of intravenous contrast for CT angiography. 3D maximum intensi ty projection images also performed. CT Dose Reduction Employed: One or more of the following individualized dose reduction techniques wer e utilized for this examination: 1. Automated exposure control 2. Adjustment of the mA and/or kV ac cording to patient size 3. Use of iterative reconstruction technique. COMPARISON: NECT head same day FINDINGS: BRAIN: No evidence of acute intracranial hemorrhage. Redemonstration of questionable enlarged [place] and midbr ain with asymmetric hypoattenuation, nonspecific but may be related to ischemia. NECK: Soft Tissues: No acute abnormality. Spine: No significant degenerative changes. Lung Apices: Unremarkable. CT ARTERIOGRAM: Extracranial Circulation: Aortic Arch: Normal branching pattern from the aortic arch. No significant stenosis in the proximal b rachiocephalic vessels. Carotid Stenosis: Right Common: No significant stenosis. Right Internal Carotid Plaque: No significant plaque formation. Right Internal Carotid Stenosis (% by NASCET Criteria): No significant stenosis. Left Common: No significant stenosis. Left Internal Carotid Plaque: No significant plaque formation. Left Internal Carotid Stenosis (% by NASCET Criteria): No significant stenosis. Cervical Vertebral Arteries: Patency: Bilateral Dominance: Left-sided dominance with hypoplasia of the right vertebral artery most pronounced in the intracranial portion of the artery. Intracranial Circulation: Anterior Circulation: No evidence of large vessel occlusion. Vertebrobasilar Circulation: No evidence of large vessel occlusion. IMPRESSION: No evidence of large vessel occlusion or significant carotid arterial stenosis. Redemonstration of questionable enlarged hypodense [place] and midbrain, possibly related to ischemia. C orrelate clinically and consider MRI for further evaluation. Hypoplastic but patent right vertebral artery. Findings discussed with Dr. Del Rio at 01/20/2022 12:16 AM. Electronically signed by: Terrance Phillips DO (01/20/2022 12:21 AM) [facility]
[2022-01-20] MEDS ORDERED: ASPIRIN 325 MG TABLET PO ONE (00:30)
[2022-01-20] MEDS ORDERED: 0.9 % SODIUM CHLORIDE 10 ML DISP.SYRIN. IV PRN ×2 (02:00→10:45)
[2022-01-20] MEDS ORDERED: ACETAMINOPHEN 325 MG TABLET. PO PRN (10:45)
[2022-01-20] MEDS ORDERED: hydrALAZINE 20 MG/ML VIAL. IVP PRN (10:45)
[2022-01-20] MEDS ORDERED: MAG HYDROX/ALUMINUM HYD/SIMETH 30 ML ORAL.SUSP PO PRN (10:45)
[2022-01-20] MEDS ORDERED: CALCIUM CARBONATE 500 MG TAB.CHEW PO PRN (10:45)
[2022-01-20] MEDS ORDERED: ONDANSETRON PF 4 MG/2 ML VIAL. IVP PRN (10:45)
[2022-01-20] MEDS ORDERED: ZOLPIDEM 5 MG TABLET. PO PRN (10:45)
--- NOTE | 2022-01-20 10:53 | PDOC1 ---
History and Physical Date of Admission Date of Admission DATE: 01/20/22 TIME: 10:38 Identification/Chief Complaint Chief Complaint Right-sided weakness and numbness Source Source: Patient History of Present Illness History of Present Illness Patient is a 41-year-old male with past medical history diastolic CHF, who presents with complaints of right facial numbness and right-sided weakness that began last night. He also notes associated expressive aphasia. Patient was just discharged from our facility yesterday after being treated for acute on chronic diastolic CHF, hypertensive urgency, and mild troponin elevations. He was discharged on carvedilol, losartan, aspirin, and amlodipine. Patient states he picked up all blood 1 of these medications, his blood pressure medication, and has not yet taken his medications. On presentation in the ER his lab work showed MCV 102, AST 38, ALT 43, proBNP 2434, high sensitive troponin 80. Initial imaging was concerning for an enlarged hypodense area of the [place] and midbrain, possibly related to ischemia; recommend correlate clinically and consider MRI for further evaluation. At the time of my evaluation patient symptoms had all but resolved. He will be admitted for further medical management. Past Medical History Cardiovascular: HTN Pulmonary: Other Psych: Anxiety Past Surgical History Past Surgical History: Hernia Repair Family History Family History: Hypertension Social History Smoke: <1 pack per day ALCOHOL: heavy Drugs: None Current Problem List Problem List Problems Medical Problems: (1) Brainstem stroke Status: Acute Current Medications Current Medications Current Medications Iohexol (Omnipaque 350 Mg/ml) 75 ml 1X ONCE IV Last administered on 01/19/22at 23:00; Start 01/19/22 at 23:00; Stop 01/19/22 at 23:03; Status DC Info (CONTRAST GIVEN -- Rx MONITORING) 1 each PRN DAILY PRN MC SEE COMMENTS; Start 01/19/22 at 23:15; Stop 01/21/22 at 23:14 Aspirin (Galileo Aspirin) 325 mg 1X ONCE PO Last administered on 01/20/22at 00:42; Start 01/20/22 at 00:30; Stop 01/20/22 at 00:36; Status DC Sodium Chloride (Normal Saline Flush) 3 ml QSHIFT PRN IV AFTER MEDS AND BLOOD DRAWS; Start 01/20/22 at 02:00 Lorazepam (Ativan) 4 mg PRN Q1HR PRN PO For CIWA 8-14; Start 01/20/22 at 10:30 Lorazepam (Ativan) 8 mg PRN Q1HR PRN PO For CIWA 15 or greater; Start 01/20/22 at 10:30 Lorazepam (Ativan Inj) 2 mg PRN Q1HR PRN IV For CIWA 8-14; Start 01/20/22 at 10:30 Lorazepam (Ativan Inj) 4 mg PRN Q1HR PRN IV For CIWA 15 or greater; Start 01/20/22 at 10:30 Lorazepam (Ativan Inj) 1 mg 1X ONCE IVP ; Start 01/20/22 at 10:30; Stop 01/20/22 at 10:31; Status DC Amlodipine Besylate (Norvasc) 10 mg DAILY PO ; Start 01/20/22 at 11:00 Aspirin (Ecotrin) 81 mg DAILYWBKFT PO ; Start 01/21/22 at 08:00 Carvedilol (Coreg) 6.25 mg BIDWMEALS PO ; Start 01/20/22 at 11:00 Losartan Potassium (Cozaar) 50 mg DAILY PO ; Start 01/20/22 at 11:00 Atorvastatin Calcium (Lipitor) 40 mg QHS PO ; Start 01/20/22 at 21:00 Hydralazine HCl (Apresoline Inj) 10 mg PRN Q4HRS PRN IVP ELEVATED BP, SEE COMMENTS; Start 01/20/22 at 10:45 Acetaminophen (Tylenol) 650 mg PRN Q6HRS PRN PO Headaches, Temp > 101.5'; Start 01/20/22 at 10:45; Status UNV Ondansetron HCl (Zofran) 4 mg PRN Q6HRS PRN IVP NAUSEA/VOMITING; Start 01/20/22 at 10:45; Status UNV Al Hydroxide/Mg Hydroxide (Mylanta Plus Xs) 30 ml PRN Q3HRS PRN PO HEARTBURN / GAS; Start 01/20/22 at 10:45; Status UNV Calcium Carbonate/ Glycine (Tums) 500 mg PRN Q3HRS PRN PO HEARTBURN / GAS; Start 01/20/22 at 10:45; Status UNV Zolpidem Tartrate (Ambien) 5 mg PRN QHS PRN PO INSOMNIA, MAY REPEAT IN 1HR; Start 01/20/22 at 10:45; Status UNV Enoxaparin Sodium (Lovenox 40mg Syringe) 40 mg Q24H SQ ; Start 01/20/22 at 10:45; Status UNV Sodium Chloride (Normal Saline Flush) 3 ml QSHIFT PRN IV AFTER MEDS AND BLOOD DRAWS; Start 01/20/22 at 10:45; Status UNV Active Scripts Active Cozaar (Losartan Potassium) 50 Mg Tablet 50 Mg PO DAILY 30 Days Aspirin Ec (Aspirin) 81 Mg Tablet.dr 81 Mg PO DAILYWBKFT 30 Days Carvedilol (Carvedilol) 6.25 Mg Tablet 6.25 Mg PO BIDWMEALS 30 Days Amlodipine Besylate 10 Mg Tablet 10 Mg PO DAILY 30 Days Allergies Allergies: Coded Allergies: No Known Drug Allergies (Unverified , 01/16/21) ROS Review of System GENERAL: Right-sided weakness no history of weight change, or fevers. SKIN: No bruising, hair changes or rashes. EYES: No blurred, double or loss of vision. NOSE AND THROAT: No history of nosebleeds, hoarseness or sore throat. HEART: Denies chest pain, denies palpitations. LUNGS: Denies cough, hemoptysis, wheezing or shortness of breath. GASTROINTESTINAL: Denies nausea, vomiting, abdominal pain. GENITOURINARY: Denies dysuria, frequency, urgency, hematuria. NEUROLOGIC: Right-sided numbness. Denies history of tingling or tremor. PSYCHIATRIC: Denies anxiety, denies depression. ENDOCRINE: No history of heat or cold intolerance, polyuria or polydipsia. EXTREMITIES: Denies joint pain, pain on walking or stiffness. Physical Exam Physical Exam General: Alert, Oriented X3, Cooperative, No acute distress HEENT: PERRLA, EOMI Lungs: Clear to auscultation, Normal air movement Heart: RRR, no murmurs Cardiovascular: S1, S2 Abdomen: Normal bowel sounds, Soft, No tenderness Extremities: No clubbing, No cyanosis Skin: No rashes, No significant lesion Neuro: Normal speech, Normal tone, Sensation intact. Strength 5/5 in all extremities. Psych/Mental Status: Mental status NL, Mood NL Vitals Vitals Vital Signs Date Time Temp Pulse Resp B/P (MAP) Pulse Ox O2 Delivery O2 Flow Rate FiO2 01/20/22 10:00 77 22 161/100 (120) 100 Room Air 01/20/22 09:00 97.8 97.8 Labs Labs Laboratory Tests Test 01/19/22 23:11 01/20/22 08:00 White Blood Count 6.4 x10^3/uL (4.0-11.0) Red Blood Count 3.97 x10^6/uL (4.30-5.70) Hemoglobin 14.3 g/dL (13.0-17.5) Hematocrit 40.4 % (39.0-53.0) Mean Corpuscular Volume 102 fL (79-100) Mean Corpuscular Hemoglobin 36 pg (25-35) Mean Corpuscular Hemoglobin Concent 35 g/dL (31-37) Red Cell Distribution Width 13.7 % (11.5-14.5) Platelet Count 162 x10^3/uL (140-400) Neutrophils (%) (Auto) 64 % (31-73) Lymphocytes (%) (Auto) 23 % (24-48) Monocytes (%) (Auto) 9 % (0-9) Eosinophils (%) (Auto) 3 % (0-3) Basophils (%) (Auto) 1 % (0-3) Neutrophils # (Auto) 4.1 x10^3/uL (1.8-7.7) Lymphocytes # (Auto) 1.5 x10^3/uL (1.0-4.8) Monocytes # (Auto) 0.6 x10^3/uL (0.0-1.1) Eosinophils # (Auto) 0.2 x10^3/uL (0.0-0.7) Basophils # (Auto) 0.1 x10^3/uL (0.0-0.2) Sodium Level 134 mmol/L (136-145) Potassium Level 3.6 mmol/L (3.5-5.1) Chloride Level 96 mmol/L (98-107) Carbon Dioxide Level 27 mmol/L (21-32) Anion Gap 11 (6-14) Blood Urea Nitrogen 20 mg/dL (8-26) Creatinine 1.2 mg/dL (0.7-1.3) Estimated GFR (Cockcroft-Gault) 66.4 BUN/Creatinine Ratio 17 (6-20) Glucose Level 97 mg/dL (70-99) Calcium Level 9.2 mg/dL (8.5-10.1) Total Bilirubin 1.0 mg/dL (0.2-1.0) Aspartate Amino Transf (AST/SGOT) 38 U/L (15-37) Alanine Aminotransferase (ALT/SGPT) 43 U/L (16-63) Alkaline Phosphatase 101 U/L (46-116) Troponin I High Sensitivity 80 ng/L (4-75) PA-Dtt-D-Type Natriuretic Peptide 3434 pg/mL (0-124) Total Protein 7.2 g/dL (6.4-8.2) Albumin 3.4 g/dL (3.4-5.0) Albumin/Globulin Ratio 0.9 (1.0-1.7) Ethyl Alcohol Level < 10 mg/dL (0-10) Laboratory Tests Test 01/19/22 23:11 01/20/22 08:00 White Blood Count 6.4 x10^3/uL (4.0-11.0) Red Blood Count 3.97 x10^6/uL (4.30-5.70) Hemoglobin 14.3 g/dL (13.0-17.5) Hematocrit 40.4 % (39.0-53.0) Mean Corpuscular Volume 102 fL (79-100) Mean Corpuscular Hemoglobin 36 pg (25-35) Mean Corpuscular Hemoglobin Concent 35 g/dL (31-37) Red Cell Distribution Width 13.7 % (11.5-14.5) Platelet Count 162 x10^3/uL (140-400) Neutrophils (%) (Auto) 64 % (31-73) Lymphocytes (%) (Auto) 23 % (24-48) Monocytes (%) (Auto) 9 % (0-9) Eosinophils (%) (Auto) 3 % (0-3) Basophils (%) (Auto) 1 % (0-3) Neutrophils # (Auto) 4.1 x10^3/uL (1.8-7.7) Lymphocytes # (Auto) 1.5 x10^3/uL (1.0-4.8) Monocytes # (Auto) 0.6 x10^3/uL (0.0-1.1) Eosinophils # (Auto) 0.2 x10^3/uL (0.0-0.7) Basophils # (Auto) 0.1 x10^3/uL (0.0-0.2) Sodium Level 134 mmol/L (136-145) Potassium Level 3.6 mmol/L (3.5-5.1) Chloride Level 96 mmol/L (98-107) Carbon Dioxide Level 27 mmol/L (21-32) Anion Gap 11 (6-14) Blood Urea Nitrogen 20 mg/dL (8-26) Creatinine 1.2 mg/dL (0.7-1.3) Estimated GFR (Cockcroft-Gault) 66.4 BUN/Creatinine Ratio 17 (6-20) Glucose Level 97 mg/dL (70-99) Calcium Level 9.2 mg/dL (8.5-10.1) Total Bilirubin 1.0 mg/dL (0.2-1.0) Aspartate Amino Transf (AST/SGOT) 38 U/L (15-37) Alanine Aminotransferase (ALT/SGPT) 43 U/L (16-63) Alkaline Phosphatase 101 U/L (46-116) Troponin I High Sensitivity 80 ng/L (4-75) RS-Ove-R-Type Natriuretic Peptide 3434 pg/mL (0-124) Total Protein 7.2 g/dL (6.4-8.2) Albumin 3.4 g/dL (3.4-5.0) Albumin/Globulin Ratio 0.9 (1.0-1.7) Ethyl Alcohol Level < 10 mg/dL (0-10) Images Images PATIENT: TIFFANY HARRIS ACCOUNT: [id number] : 1980 LOCATION: ER AGE: 41 SEX: M EXAM STATUS: REG ER ORD. PHYSICIAN: JACK SNOWDEN APRN REASON: numbness in left face PROCEDURE: CT ANGIOGRAPHY HEAD AND NECK EXAMINATION: CTA HEAD AND NECK W/WO CONTRAST CLINICAL HISTORY: Left facial numbness. TECHNIQUE: Spiral high resolution axial images were obtained through the head, neck and superior mediastinum following bolus administration of intravenous contrast for CT angiography. 3D maximum intensity projection images also performed. CT Dose Reduction Employed: One or more of the following individualized dose reduction techniques were utilized for this examination: 1. Automated exposure control 2. Adjustment of the mA and/or kV according to patient size 3. Use of iterative reconstruction technique. COMPARISON: NECT head same day FINDINGS: BRAIN: No evidence of acute intracranial hemorrhage. Redemonstration of questionable enlarged [place] and midbrain with asymmetric hypoattenuation, nonspecific but may be related to ischemia. NECK: Soft Tissues: No acute abnormality. Spine: No significant degenerative changes. Lung Apices: Unremarkable. CT ARTERIOGRAM: Extracranial Circulation: Aortic Arch: Normal branching pattern from the aortic arch. No significant stenosis in the proximal brachiocephalic vessels. Carotid Stenosis: Right Common: No significant stenosis. Right Internal Carotid Plaque: No significant plaque formation. Right Internal Carotid Stenosis (% by NASCET Criteria): No significant stenosis. Left Common: No significant stenosis. Left Internal Carotid Plaque: No significant plaque formation. Left Internal Carotid Stenosis (% by NASCET Criteria): No significant stenosis. Cervical Vertebral Arteries: Patency: Bilateral Dominance: Left-sided dominance with hypoplasia of the right vertebral artery most pronounced in the intracranial portion of the artery. Intracranial Circulation: Anterior Circulation: No evidence of large vessel occlusion. Vertebrobasilar Circulation: No evidence of large vessel occlusion. IMPRESSION: No evidence of large vessel occlusion or significant carotid arterial stenosis. Redemonstration of questionable enlarged hypodense [place] and midbrain, possibly related to ischemia. Correlate clinically and consider MRI for further evaluation. Hypoplastic but patent right vertebral artery. PATIENT: TIFFANY HARRIS ACCOUNT: [id number] : 1980 LOCATION: ER AGE: 41 SEX: M EXAM STATUS: REG ER ORD. PHYSICIAN: JACK SNOWDEN APRN REASON: numbness in left face [phone], DIFFICULTY HOLDING STILL PROCEDURE: CT HEAD WO CONTRAST EXAMINATION: CT HEAD/BRAIN WO CLINICAL HISTORY: Left facial numbness. TECHNIQUE: Serial axial images without IV contrast were obtained from the vertex to the foramen magnum. CT Dose Reduction Employed: One or more of the following individualized dose reduction techniques were utilized for this examination: 1. Automated exposure control 2. Adjustment of the mA and/or kV according to patient size 3. Use of iterative reconstruction technique. COMPARISON: None FINDINGS: Acute Change: No definitive evidence of an acute infarct or other acute parenchymal process. Questionable enlarged [place] and midbrain with asymmetric hypoattenuation, nonspecific but may be related to artifact or ischemia. Hemorrhage: No evidence of acute intracranial hemorrhage. Mass Lesion/Mass Effect: No evidence of intracranial mass or extraaxial fluid collection. No significant mass effect. Chronic Change: Scattered patchy foci of hypoattenuation in the supratentorial white matter, nonspecific but likely represents mild microvascular ischemia. Atherosclerotic calcification of the intracranial portion of the bilateral internal carotid arteries. Parenchyma: Mild generalized volume loss. Ventricles: Ventricular enlargement concordant with degree of parenchymal volume loss. Paranasal Sinuses and Skull Base: Complete opacification of the right maxillary sinus with thickened sclerotic anterior lateral sinus danielle and disruption of the medial wall, likely related to chronic sinusitis. Mild to moderate secretions in the right ethmoid air cells. Visualized skull base and soft tissues unremarkable. IMPRESSION: No definitive evidence of acute intracranial abnormality. Questionable enlarged hypodense [place] and midbrain, possibly related to artifact or ischemia. Correlate clinically and consider MRI for further evaluation. PATIENT: TIFFANY HARRIS ACCOUNT: [id number] : 1980 LOCATION: ER AGE: 41 SEX: M EXAM STATUS: PRE ER ORD. PHYSICIAN: JACK SNOWDEN APRN REASON: numbness in face PROCEDURE: CHEST AP ONLY XR CHEST 1V 01/19/2022 11:01 PM INDICATION: Numbness in the face COMPARISON: 01/19/2022 TECHNIQUE: Portable frontal view of the chest is provided. FINDINGS: The cardiomediastinal silhouette is within normal limits. Lungs are clear. There is improving perihilar interstitial changes. There are no significant pleural effusions. There is no pulmonary vascular congestion. No pneumothorax. No suspicious osseous abnormality. IMPRESSION: Improving perihilar interstitial airspace disease. VTE Prophylaxis Ordered VTE Prophylaxis Devices: No VTE Pharmacological Prophylaxi: Yes Assessment/Plan Assessment/Plan TIA Hypertensive urgency Alcohol abuse Plan: Consultation placed to neurology I imagine he will have an MRI today. I deferred Dr. Guardado in this regard. Discussed with RN, apparently on last admission patient admitted to regular alcohol use every other day. Will place on alcohol withdrawal protocol and Ativan for MRI. IV hydralazine as needed Will add high-dose statin FEN - NPO for MRI; then cardiac diet PPX - Lovenox FULL CODE/surrogate decision-maker is his (Patti Harris) Dispo - inpatient for above Justifications for Admission Other Justification NOAM SARGENT MD Jan 20, 2022 10:53
[2022-01-20] MEDS: NICOTINE 21MG PATCH. TD SCH ×2 (11:37→16:39)
[2022-01-20] MEDS: ENOXAPARIN 40 MG/0.4 ML SYRINGE. SQ SCH (11:39)
[2022-01-20] MEDS: CARVEDILOL 6.25 MG TABLET. PO SCH ×2 (11:40→21:00)
[2022-01-20] MEDS: LOSARTAN POTASSIUM 50 MG TABLET. PO SCH (11:41)
--- NOTE | 2022-01-20 12:06 | PDOC2 ---
NEUROLOGY CONSULT Date of Service DOS: DATE: 01/20/22 TIME: 11:54 Reason for Consult Reason for Consult: Stroke Referring Physician Referring Physician: Dr. Mcgraw Source Source: Caregiver (), Chart review, Patient History of Present Illness History of Present Illness The patient is a 41-year-old right-handed male with onset of left facial numbness and dysarthria at 17:30 last night. He was admitted to the hospital on 01/18 with hypertension and elevated troponin, and was started on 4 new medications which include amlodipine, carvedilol, aspirin, and losartan, but he had not taken any of these. He did have a nicotine patch on, and was also smoking a cigarette. He was driving in his car when the symptoms began. I spoke to Dr. Del Rio early this morning at 00:30. We agreed that the patient was not a candidate for alteplase. I advised him to contact the stroke neurologist at , who declined transfer or intervention. Patient is feeling better today, still feels a little unsteady. His says that he had a spell of dysarthria about a year ago. Patient does drink a large amount of alcohol and continues to smoke. 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 but last drink was 2 days ago, smokes at least a pack of cigarettes per day Current Medications Current Medications Current Medications Iohexol (Omnipaque 350 Mg/ml) 75 ml 1X ONCE IV Last administered on 01/19/22at 23:00; Start 01/19/22 at 23:00; Stop 01/19/22 at 23:03; Status DC Info (CONTRAST GIVEN -- Rx MONITORING) 1 each PRN DAILY PRN MC SEE COMMENTS; Start 01/19/22 at 23:15; Stop 01/21/22 at 23:14 Aspirin (Galileo Aspirin) 325 mg 1X ONCE PO Last administered on 01/20/22at 00:42; Start 01/20/22 at 00:30; Stop 01/20/22 at 00:36; Status DC Sodium Chloride (Normal Saline Flush) 3 ml QSHIFT PRN IV AFTER MEDS AND BLOOD DRAWS; Start 01/20/22 at 02:00 Lorazepam (Ativan) 4 mg PRN Q1HR PRN PO For CIWA 8-14; Start 01/20/22 at 10:30 Lorazepam (Ativan) 8 mg PRN Q1HR PRN PO For CIWA 15 or greater; Start 01/20/22 at 10:30 Lorazepam (Ativan Inj) 2 mg PRN Q1HR PRN IV For CIWA 8-14; Start 01/20/22 at 10:30 Lorazepam (Ativan Inj) 4 mg PRN Q1HR PRN IV For CIWA 15 or greater; Start 01/20/22 at 10:30 Lorazepam (Ativan Inj) 1 mg 1X ONCE IVP ; Start 01/20/22 at 10:30; Stop 01/20/22 at 10:31; Status Cancel Amlodipine Besylate (Norvasc) 10 mg DAILY PO Last administered on 01/20/22at 11:40; Start 01/20/22 at 11:00 Aspirin (Ecotrin) 81 mg DAILYWBKFT PO ; Start 01/21/22 at 08:00 Carvedilol (Coreg) 6.25 mg BIDWMEALS PO Last administered on 01/20/22at 11:40; Start 01/20/22 at 11:00 Losartan Potassium (Cozaar) 50 mg DAILY PO Last administered on 01/20/22at 11:41; Start 01/20/22 at 11:00 Atorvastatin Calcium (Lipitor) 40 mg QHS PO ; Start 01/20/22 at 21:00 Hydralazine HCl (Apresoline Inj) 10 mg PRN Q4HRS PRN IVP ELEVATED BP, SEE COMMENTS; Start 01/20/22 at 10:45 Acetaminophen (Tylenol) 650 mg PRN Q6HRS PRN PO Headaches, Temp > 101.5'; Start 01/20/22 at 10:45 Ondansetron HCl (Zofran) 4 mg PRN Q6HRS PRN IVP NAUSEA/VOMITING; Start 01/20/22 at 10:45 Al Hydroxide/Mg Hydroxide (Mylanta Plus Xs) 30 ml PRN Q3HRS PRN PO HEARTBURN / GAS; Start 01/20/22 at 10:45 Calcium Carbonate/ Glycine (Tums) 500 mg PRN Q3HRS PRN PO HEARTBURN / GAS; Start 01/20/22 at 10:45 Zolpidem Tartrate (Ambien) 5 mg PRN QHS PRN PO INSOMNIA, MAY REPEAT IN 1HR; Start 01/20/22 at 10:45 Enoxaparin Sodium (Lovenox 40mg Syringe) 40 mg Q24H SQ Last administered on 01/20/22at 11:39; Start 01/20/22 at 11:00 Sodium Chloride (Normal Saline Flush) 3 ml QSHIFT PRN IV AFTER MEDS AND BLOOD DRAWS; Start 01/20/22 at 10:45 Lorazepam (Ativan Inj) 1 mg PRN 1X PRN IVP ANXIETY/AGITATION; Start 01/20/22 at 10:45 Nicotine (Nicoderm Cq 21mg) 1 patch DAILY TD Last administered on 01/20/22at 1 1:37; Start 01/20/22 at 12:00 Active Scripts Active Cozaar (Losartan Potassium) 50 Mg Tablet 50 Mg PO DAILY 30 Days Aspirin Ec (Aspirin) 81 Mg Tablet.dr 81 Mg PO DAILYWBKFT 30 Days Carvedilol (Carvedilol) 6.25 Mg Tablet 6.25 Mg PO BIDWMEALS 30 Days Amlodipine Besylate 10 Mg Tablet 10 Mg PO DAILY 30 Days Allergies Allergies: Coded Allergies: No Known Drug Allergies (Unverified , 01/16/21) ROS Review of System Negative for fever, chills, weight loss, shortness of breath, chest pain, indigestion, hematochezia, melena, and dysuria. Full 14-point review of systems is negative. Physical Exam Physical Examination General: Well-developed, well-nourished, white male, in no acute distress HEENT: Normocephalic andatraumatic. Temporal arteriespulsatile and nontender. Neck: Supple without bruit, no meningismus Musculoskeletal: Stability:see neurologic. Gait exam:see neurologic. Tone:see neurologic.Strength:see neurologic. Neurological: Mental Status:intact, orientation, memory, attention span/concentration, language, fund of knowledge normal. Cranial Nerves:Pupils equal and reactive to light, extraocular movements areintact, visual livingston are full to confrontation. Facial sensation is normal. There is no facial asymmetry. Vestibulo-ocular reflex is intact. Palate elevates and tongue protrudes in midline. All other cranial related problems are negative except as mentioned before.Reflexes:2+ and symmetric with flexor plantar responses. Motor:5/5 strength with normal tone and bulk. Coordination:Finger-nose finger and [id number] testing are normal. Rapid alternating movements and fine finger movements are intact. Gait:Ataxic. Sensory:Normal pinprick, vibration, light touch, proprioception. Vitals VITALS Vital Signs Date Time Temp Pulse Resp B/P (MAP) Pulse Ox O2 Delivery O2 Flow Rate FiO2 01/20/22 11:41 78 159/84 01/20/22 11:00 20 100 Room Air 01/20/22 09:00 97.8 97.8 Labs Labs Labs from last admission 01/19/22: Triglycerides 41, cholesterol 149, LDL 95, VLDL 8, non-HDL calculated 103, HDL 46, B12 511, TSH 3.737 Laboratory Tests Test 01/19/22 23:11 01/20/22 08:00 White Blood Count 6.4 x10^3/uL (4.0-11.0) Red Blood Count 3.97 x10^6/uL (4.30-5.70) Hemoglobin 14.3 g/dL (13.0-17.5) Hematocrit 40.4 % (39.0-53.0) Mean Corpuscular Volume 102 fL (79-100) Mean Corpuscular Hemoglobin 36 pg (25-35) Mean Corpuscular Hemoglobin Concent 35 g/dL (31-37) Red Cell Distribution Width 13.7 % (11.5-14.5) Platelet Count 162 x10^3/uL (140-400) Neutrophils (%) (Auto) 64 % (31-73) Lymphocytes (%) (Auto) 23 % (24-48) Monocytes (%) (Auto) 9 % (0-9) Eosinophils (%) (Auto) 3 % (0-3) Basophils (%) (Auto) 1 % (0-3) Neutrophils # (Auto) 4.1 x10^3/uL (1.8-7.7) Lymphocytes # (Auto) 1.5 x10^3/uL (1.0-4.8) Monocytes # (Auto) 0.6 x10^3/uL (0.0-1.1) Eosinophils # (Auto) 0.2 x10^3/uL (0.0-0.7) Basophils # (Auto) 0.1 x10^3/uL (0.0-0.2) Sodium Level 134 mmol/L (136-145) Potassium Level 3.6 mmol/L (3.5-5.1) Chloride Level 96 mmol/L (98-107) Carbon Dioxide Level 27 mmol/L (21-32) Anion Gap 11 (6-14) Blood Urea Nitrogen 20 mg/dL (8-26) Creatinine 1.2 mg/dL (0.7-1.3) Estimated GFR (Cockcroft-Gault) 66.4 BUN/Creatinine Ratio 17 (6-20) Glucose Level 97 mg/dL (70-99) Calcium Level 9.2 mg/dL (8.5-10.1) Total Bilirubin 1.0 mg/dL (0.2-1.0) Aspartate Amino Transf (AST/SGOT) 38 U/L (15-37) Alanine Aminotransferase (ALT/SGPT) 43 U/L (16-63) Alkaline Phosphatase 101 U/L (46-116) Troponin I High Sensitivity 80 ng/L (4-75) JR-Swi-I-Type Natriuretic Peptide 3434 pg/mL (0-124) Total Protein 7.2 g/dL (6.4-8.2) Albumin 3.4 g/dL (3.4-5.0) Albumin/Globulin Ratio 0.9 (1.0-1.7) Ethyl Alcohol Level < 10 mg/dL (0-10) Laboratory Tests Test 01/19/22 23:11 01/20/22 08:00 White Blood Count 6.4 x10^3/uL (4.0-11.0) Red Blood Count 3.97 x10^6/uL (4.30-5.70) Hemoglobin 14.3 g/dL (13.0-17.5) Hematocrit 40.4 % (39.0-53.0) Mean Corpuscular Volume 102 fL (79-100) Mean Corpuscular Hemoglobin 36 pg (25-35) Mean Corpuscular Hemoglobin Concent 35 g/dL (31-37) Red Cell Distribution Width 13.7 % (11.5-14.5) Platelet Count 162 x10^3/uL (140-400) Neutrophils (%) (Auto) 64 % (31-73) Lymphocytes (%) (Auto) 23 % (24-48) Monocytes (%) (Auto) 9 % (0-9) Eosinophils (%) (Auto) 3 % (0-3) Basophils (%) (Auto) 1 % (0-3) Neutrophils # (Auto) 4.1 x10^3/uL (1.8-7.7) Lymphocytes # (Auto) 1.5 x10^3/uL (1.0-4.8) Monocytes # (Auto) 0.6 x10^3/uL (0.0-1.1) Eosinophils # (Auto) 0.2 x10^3/uL (0.0-0.7) Basophils # (Auto) 0.1 x10^3/uL (0.0-0.2) Sodium Level 134 mmol/L (136-145) Potassium Level 3.6 mmol/L (3.5-5.1) Chloride Level 96 mmol/L (98-107) Carbon Dioxide Level 27 mmol/L (21-32) Anion Gap 11 (6-14) Blood Urea Nitrogen 20 mg/dL (8-26) Creatinine 1.2 mg/dL (0.7-1.3) Estimated GFR (Cockcroft-Gault) 66.4 BUN/Creatinine Ratio 17 (6-20) Glucose Level 97 mg/dL (70-99) Calcium Level 9.2 mg/dL (8.5-10.1) Total Bilirubin 1.0 mg/dL (0.2-1.0) Aspartate Amino Transf (AST/SGOT) 38 U/L (15-37) Alanine Aminotransferase (ALT/SGPT) 43 U/L (16-63) Alkaline Phosphatase 101 U/L (46-116) Troponin I High Sensitivity 80 ng/L (4-75) OD-Agr-O-Type Natriuretic Peptide 3434 pg/mL (0-124) Total Protein 7.2 g/dL (6.4-8.2) Albumin 3.4 g/dL (3.4-5.0) Albumin/Globulin Ratio 0.9 (1.0-1.7) Ethyl Alcohol Level < 10 mg/dL (0-10) Images Images CTA HEAD AND NECK W/WO CONTRAST, 01/20/2022 12:16 AM CLINICAL HISTORY: Left facial numbness. TECHNIQUE: Spiral high resolution axial images were obtained through the head, neck and superior mediastinum following bolus administration of intravenous contrast for CT angiography. 3D maximum intensity projection images also performed. CT Dose Reduction Employed: One or more of the following individualized dose reduction techniques were utilized for this examination: 1. Automated exposure control 2. Adjustment of the mA and/or kV according to patient size 3. Use of iterative reconstruction technique. COMPARISON: NECT head same day FINDINGS: BRAIN: No evidence of acute intracranial hemorrhage. Redemonstration of questionable enlarged [place] and midbrain with asymmetric hypoattenuation, nonspecific but may be related to ischemia. NECK: Soft Tissues: No acute abnormality. Spine: No significant degenerative changes. Lung Apices: Unremarkable. CT ARTERIOGRAM: Extracranial Circulation: Aortic Arch: Normal branching pattern from the aortic arch. No significant stenosis in the proximal brachiocephalic vessels. Carotid Stenosis: Right Common: No significant stenosis. Right Internal Carotid Plaque: No significant plaque formation. Right Internal Carotid Stenosis (% by NASCET Criteria): No significant stenosis. Left Common: No significant stenosis. Left Internal Carotid Plaque: No significant plaque formation. Left Internal Carotid Stenosis (% by NASCET Criteria): No significant stenosis. Cervical Vertebral Arteries: Patency: Bilateral Dominance: Left-sided dominance with hypoplasia of the right vertebral artery most pronounced in the intracranial portion of the artery. Intracranial Circulation: Anterior Circulation: No evidence of large vessel occlusion. Vertebrobasilar Circulation: No evidence of large vessel occlusion. IMPRESSION: No evidence of large vessel occlusion or significant carotid arterial stenosis. Redemonstration of questionable enlarged hypodense [place] and midbrain, possibly related to ischemia. Correlate clinically and consider MRI for further evaluation. Hypoplastic but patent right vertebral artery. CT HEAD/BRAIN WO, 01/20/2022 12:10 AM CLINICAL HISTORY: Left facial numbness. TECHNIQUE: Serial axial images without IV contrast were obtained from the vertex to the foramen magnum. CT Dose Reduction Employed: One or more of the following individualized dose reduction techniques were utilized for this examination: 1. Automated exposure control 2. Adjustment of the mA and/or kV according to patient size 3. Use of iterative reconstruction technique. COMPARISON: None FINDINGS: Acute Change: No definitive evidence of an acute infarct or other acute parenchymal process. Questionable enlarged [place] and midbrain with asymmetric hypoattenuation, nonspecific but may be related to artifact or ischemia. Hemorrhage: No evidence of acute intracranial hemorrhage. Mass Lesion/Mass Effect: No evidence of intracranial mass or extraaxial fluid collection. No significant mass effect. Chronic Change: Scattered patchy foci of hypoattenuation in the supratentorial white matter, nonspecific but likely represents mild microvascular ischemia. Atherosclerotic calcification of the intracranial portion of the bilateral internal carotid arteries. Parenchyma: Mild generalized volume loss. Ventricles: Ventricular enlargement concordant with degree of parenchymal volume loss. Paranasal Sinuses and Skull Base: Complete opacification of the right maxillary sinus with thickened sclerotic anterior lateral sinus danielle and disruption of the medial wall, likely related to chronic sinusitis. Mild to moderate secretions in the right ethmoid air cells. Visualized skull base and soft tissues unremarkable. IMPRESSION: No definitive evidence of acute intracranial abnormality. Questionable enlarged hypodense [place] and midbrain, possibly related to artifact or ischemia. Correlate clinically and consider MRI for further evaluation. Echocardiogram, 01/19/2022 (prior admission): LEFT VENTRICLE The left ventricle is normal size. There is moderate concentric left ventricular hypertrophy. The left ventricular systolic function is normal and the ejection fraction is within normal range. LV ejection fraction of 60 to 65%. There is normal LV segmental wall motion. Transmitral Doppler flow pattern is Grade II- pseudonormal filling dynamics. RIGHT VENTRICLE The right ventricle is normal size. There is normal right ventricular wall thickness. The right ventricular systolic function is normal. ATRIA The left atrium size is normal. The right atrium size is normal. The interatrial septum is intact with no evidence for an atrial septal defect or patent foramen ovale as noted on 2-D or Doppler imaging. AORTIC VALVE The aortic valve is normal in structure and function. Doppler and Color Flow revealed no significant aortic regurgitation. There is no significant aortic valvular stenosis. MITRAL VALVE The mitral valve is normal in structure and function. There is no evidence of mitral valve prolapse. There is no mitral valve stenosis. Doppler and Color Flow revealed no mitral valve regurgitation noted. TRICUSPID VALVE The tricuspid valve is normal in structure and function. Doppler and Color Flow revealed trace tricuspid regurgitation. There is no tricuspid valve stenosis. PULMONIC VALVE The pulmonary valve is normal in structure and function. Doppler and Color Flow revealed no pulmonic valvular regurgitation. GREAT VESSELS The aortic root is normal in size. The ascending aorta is normal in size. The IVC is normal in size and collapses >50% with inspiration. PERICARDIAL EFFUSION There is no evidence of significant pericardial effusion. Critical Notification Critical Value: No <Conclusion> The left ventricle is normal size. The left ventricular systolic function is normal and the ejection fraction is within normal range. LV ejection fraction of 60 to 65%. There is normal LV segmental wall motion. There is moderate concentric left ventricular hypertrophy. Doppler and Color Flow revealed no significant aortic regurgitation. There is no significant aortic valvular stenosis. Doppler and Color Flow revealed no mitral valve regurgitation noted. Doppler and Color Flow revealed trace tricuspid regurgitation. Assessment/Plan Assessment/Plan Impression: Stroke symptoms of dysarthria, ataxia, some confusion, nonspecific, may be related to alcohol, may be related to relative hypotension from what he is used to with the abnormal right vertebral artery. Questionable enlarged hypodense [place] and midbrain, no evidence of such a severe brainstem stroke on bedside testing, doubt neoplasm Hypoplastic but patent right vertebral artery. Alcohol and tobacco use Lipid profile normal yesterday on the previous admission. Hypertension. Recommendations: Continue current blood pressure medicines Continue statin Aspirin I did not see a need for a stat MRI of the brain in the middle of the night but will obtain one today. Rehabilitation modalities Observe at least 1 more night, transfer out of ICU if MRI negative Alcohol withdrawal protocol Nicotine patch Fully discussed with patient and his family. Thank you for letting me help with the patient's care. ENRIQUETA FITCH MD Jan 20, 2022 12:05
--- NOTE | 2022-01-20 13:49 | RAD ---
MRI of the brain without contrast HISTORY: Hypertension left facial numbness and abnormal CT Multiple sequential imaging of the brain performed without contrast There is profound markedly abnormal signal in the brainstem including the [place] and mesencephalon as w ell as abnormal activity in the middle cerebellar peduncles with high signal on T2 and FLAIR and low signal on T1. The [place] appears mildly swollen. Similarly there is abnormal signal within the perivent ricular white matter. There is a single focus of residual water motion at the left parietal lobe near the midline. There is a mass within the ethmoid air cells on the right with occlusion of the osteal complex and fi lling of the right maxillary sinus with fluid. There is a 1.6 cm x 0.2 cm cutaneous lesion in the sca lp posteriorly on the right. There is no hydrocephalus. There is no extra-axial fluid collections. IMPRESSION: 1. There is only one single tiny focus of acute ischemia at the left parasagittal parietal cortex. 2. There is profound white matter disease especially involving the brainstem and middle cerebellar pe duncles. The appearance is nonspecific and could be secondary to a toxic or metabolic insult or could be PRESS. Given the swelling of the [place] a neoplasm such as lymphoma or glioma should be considered. 3. There is a mass involving the ethmoid air cells on the right and the right osteal complex with opa cification of the right maxillary sinus. 4. There is a small cutaneous mass posteriorly on the right. Recommend MRI of the brain with contrast. Electronically signed by: Vadim Alanis III, MD (01/20/2022 1:47 PM) [facility]
[2022-01-20] MEDS: ATORVASTATIN CALCIUM 40 MG TABLET. PO SCH (21:00)
--- NOTE | 2022-01-20 22:23 | NUR ---
Pt. is unable to take PO medications at this time because he is too sleepy and unable to follow directions to take pills. Addendum: 01/21/22 at 1817 by Vadim Snowden RN PT COUGHING WHEN GIVEN WATER WILL MAKE NPO AND PUT IN SPEECH EVALUATION.
[2022-01-21] VITALS (12 sets, daily range): BP systolic 100–156; BP diastolic 58–106
--- NOTE | 2022-01-21 06:19 | EKG ---
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 (Measurements might be questionable) RI6.02 No previous ECG available for comparison
[2022-01-21] MEDS: ASPIRIN ENTERIC COATED 81 MG TABLET.DR. PO SCH (08:56)
[2022-01-21] MEDS: LOSARTAN POTASSIUM 50 MG TABLET. PO SCH (08:57)
[2022-01-21] MEDS: CARVEDILOL 6.25 MG TABLET. PO SCH ×2 (08:57→17:00)
--- NOTE | 2022-01-21 12:15 | PDOC ---
[employer] PROGRESS NOTE Date of Service DOS: DATE: 01/21/22 TIME: 12:08 Chief Complaint Chief Complaint TIA Hypertensive urgency Alcohol abuse Alcohol withdrawal History of Present Illness History of Present Illness 01/21: Patient evaluated in ICU with at bedside. She reports some hallucinations overnight, and admits to history of alcohol abuse. Patient currently on CIWA protocol. No new or worsening neurological symptoms. MRI showed only one single tiny focus of acute ischemia at the left parasagittal parietal cortex, profound white matter disease especially involving the brainstem and middle cerebellar peduncles with nonspecific appearance that could be secondary to a toxic or metabolic insult or could be PRESS. Given the swelling of the [place] a neoplasm such as lymphoma or glioma should be considered. We will continue current medications and continue to follow neurology recommendations. 30 minutes critical care time spent reviewing charts, reviewing labs, reviewing imaging, discussion with patient's , and discussed with RN. Vitals/I&O Vitals/I&O: Vital Signs Date Time Temp Pulse Resp B/P (MAP) Pulse Ox O2 Delivery O2 Flow Rate FiO2 01/21/22 08:57 76 154/106 01/21/22 06:00 18 96 Room Air 01/21/22 02:00 98.2 98.2 01/20/22 20:00 2.0 I & O 01/20/22 01/20/22 01/21/22 15:00 23:00 07:00 Intake Total 780 ml 0 ml 0 ml Output Total 200 ml Balance 580 ml 0 ml 0 ml Physical Exam General: Alert, Cooperative, No acute distress Heart: Regular rate Lungs: Clear Abdomen: Soft, No tenderness Extremities: No clubbing, No cyanosis Skin: No rashes, No breakdown Assessment and Plan Assessmemt and Plan Problems Medical Problems: (1) Brainstem stroke Status: Acute Comment Review of Relevant I have reviewed the following items lauren (where applicable) has been applied. Medications: Current Medications Medications (Trade) Dose Ordered Sig/Catherine Route PRN Reason Start Time Stop Time Status Last Admin Dose Admin Aspirin (Ecotrin) 81 mg DAILYWBKFT PO 01/21/22 08:00 01/21/22 08:56 Justifications for Admission Other Justification NOAM SARGENT MD Jan 21, 2022 12:15
[2022-01-21] MEDS: ENOXAPARIN 40 MG/0.4 ML SYRINGE. SQ SCH (12:36)
--- NOTE | 2022-01-21 15:07 | PDOC ---
PROGRESS NOTES Date of Service DATE: 01/21/22 TIME: 15:02 Assessment Problems Medical Problems: (1) Brainstem stroke Status: Acute Small acute stroke, left parasagittal parietal cortex, not clinically germane. White matter disease especially involving the brainstem and middle cerebellar peduncles. "The appearance is nonspecific and could be secondary to a toxic or metabolic insult or could be PRES. Given the swelling of the [place] a neoplasm such as lymphoma or glioma should be considered." Mass involving the ethmoid air cells on the right and the right osteal complex with opacification of the right maxillary sinus. Small cutaneous mass posteriorly on the right. Dysarthria, ataxia, some confusion, related to alcohol use as well as the brainstem mass Hypoplastic but patent right vertebral artery. Alcohol and tobacco use Lipid profile normal yesterday on the previous admission. Hypertension. Plan Continue current blood pressure medicines Continue statin Aspirin Repeat MRI of the brain with and without contrast tomorrow Rehabilitation modalities Patient was transferred out of ICU without my permission, but I think he is fine to stay on 6 S. with frequent neuro checks Alcohol withdrawal protocol Nicotine patch Discussed with nurse Fully discussed with patient and his family (brother yesterday by phone and today in person). Subjective He has been agitated and requiring sedation Objective Vital Signs Date Time Temp Pulse Resp B/P (MAP) Pulse Ox O2 Delivery O2 Flow Rate FiO2 01/21/22 12:00 98.3 72 18 138/73 (94) 98 Room Air 98.3 01/20/22 20:00 2.0 Intake and Output 01/21/22 07:00 Intake Total 780 ml Output Total 200 ml Balance 580 ml Intake Oral 780 ml Output Urine Total 200 ml PHYSICAL EXAM Received some Ativan, is sedated, arouses easily, looks at observer, follows commands, but nonverbal PERRL. EOMI. CN: no focal findings. Muscle tone: normal. Muscle strength: 4/5 DTR: 2+ Plantar reflex: Flexor Gait: not examined in bed. Sensory exam: no abnormal findings. No cerebellar signs elicited. Review of Relevant I have reviewed the following items lauren (where applicable) has been applied. Labs Laboratory Tests Test 01/19/22 23:11 01/20/22 08:00 White Blood Count 6.4 x10^3/uL (4.0-11.0) Red Blood Count 3.97 x10^6/uL (4.30-5.70) Hemoglobin 14.3 g/dL (13.0-17.5) Hematocrit 40.4 % (39.0-53.0) Mean Corpuscular Volume 102 fL (79-100) Mean Corpuscular Hemoglobin 36 pg (25-35) Mean Corpuscular Hemoglobin Concent 35 g/dL (31-37) Red Cell Distribution Width 13.7 % (11.5-14.5) Platelet Count 162 x10^3/uL (140-400) Neutrophils (%) (Auto) 64 % (31-73) Lymphocytes (%) (Auto) 23 % (24-48) Monocytes (%) (Auto) 9 % (0-9) Eosinophils (%) (Auto) 3 % (0-3) Basophils (%) (Auto) 1 % (0-3) Neutrophils # (Auto) 4.1 x10^3/uL (1.8-7.7) Lymphocytes # (Auto) 1.5 x10^3/uL (1.0-4.8) Monocytes # (Auto) 0.6 x10^3/uL (0.0-1.1) Eosinophils # (Auto) 0.2 x10^3/uL (0.0-0.7) Basophils # (Auto) 0.1 x10^3/uL (0.0-0.2) Sodium Level 134 mmol/L (136-145) Potassium Level 3.6 mmol/L (3.5-5.1) Chloride Level 96 mmol/L (98-107) Carbon Dioxide Level 27 mmol/L (21-32) Anion Gap 11 (6-14) Blood Urea Nitrogen 20 mg/dL (8-26) Creatinine 1.2 mg/dL (0.7-1.3) Estimated GFR (Cockcroft-Gault) 66.4 BUN/Creatinine Ratio 17 (6-20) Glucose Level 97 mg/dL (70-99) Calcium Level 9.2 mg/dL (8.5-10.1) Total Bilirubin 1.0 mg/dL (0.2-1.0) Aspartate Amino Transf (AST/SGOT) 38 U/L (15-37) Alanine Aminotransferase (ALT/SGPT) 43 U/L (16-63) Alkaline Phosphatase 101 U/L (46-116) Troponin I High Sensitivity 80 ng/L (4-75) CQ-Cvv-W-Type Natriuretic Peptide 3434 pg/mL (0-124) Total Protein 7.2 g/dL (6.4-8.2) Albumin 3.4 g/dL (3.4-5.0) Albumin/Globulin Ratio 0.9 (1.0-1.7) Ethyl Alcohol Level < 10 mg/dL (0-10) Medications Current Medications Iohexol (Omnipaque 350 Mg/ml) 75 ml 1X ONCE IV Last administered on 01/19/22at 23:00; Start 01/19/22 at 23:00; Stop 01/19/22 at 23:03; Status DC Info (CONTRAST GIVEN -- Rx MONITORING) 1 each PRN DAILY PRN MC SEE COMMENTS; Start 01/19/22 at 23:15; Stop 01/21/22 at 23:14 Aspirin (Galileo Aspirin) 325 mg 1X ONCE PO Last administered on 01/20/22at 00:42; Start 01/20/22 at 00:30; Stop 01/20/22 at 00:36; Status DC Sodium Chloride (Normal Saline Flush) 3 ml QSHIFT PRN IV AFTER MEDS AND BLOOD DRAWS; Start 01/20/22 at 02:00 Lorazepam (Ativan) 4 mg PRN Q1HR PRN PO For CIWA 8-14 Last administered on 01/21/22at 12:36; Start 01/20/22 at 10:30 Lorazepam (Ativan) 8 mg PRN Q1HR PRN PO For CIWA 15 or greater Last adminis tered on 01/20/22at 15:28; Start 01/20/22 at 10:30 Lorazepam (Ativan Inj) 2 mg PRN Q1HR PRN IV For CIWA 8-14; Start 01/20/22 at 10: 30 Lorazepam (Ativan Inj) 4 mg PRN Q1HR PRN IV For CIWA 15 or greater; Start 01/20/22 at 10:30 Lorazepam (Ativan Inj) 1 mg 1X ONCE IVP ; Start 01/20/22 at 10:30; Stop 01/20/22 at 10:31; Status Cancel Amlodipine Besylate (Norvasc) 10 mg DAILY PO Last administered on 01/21/22at 08:56; Start 01/20/22 at 11:00 Aspirin (Ecotrin) 81 mg DAILYWBKFT PO Last administered on 01/21/22at 08:56; S tart 01/21/22 at 08:00 Carvedilol (Coreg) 6.25 mg BIDWMEALS PO Last administered on 01/21/22at 08:57; Start 01/20/22 at 11:00 Losartan Potassium (Cozaar) 50 mg DAILY PO Last administered on 01/21/22at 08:57; Start 01/20/22 at 11:00 Atorvastatin Calcium (Lipitor) 40 mg QHS PO ; Start 01/20/22 at 21:00 Hydralazine HCl (Apresoline Inj) 10 mg PRN Q4HRS PRN IVP ELEVATED BP, SEE COMMENTS; Start 01/20/22 at 10:45 Acetaminophen (Tylenol) 650 mg PRN Q6HRS PRN PO Headaches, Temp > 101.5' Last administered on 01/21/22at 12:37; Start 01/20/22 at 10:45 Ondansetron HCl (Zofran) 4 mg PRN Q6HRS PRN IVP NAUSEA/VOMITING; Start 01/20/22 at 10:45 Al Hydroxide/Mg Hydroxide (Mylanta Plus Xs) 30 ml PRN Q3HRS PRN PO HEARTBURN / GAS; Start 01/20/22 at 10:45 Calcium Carbonate/ Glycine (Tums) 500 mg PRN Q3HRS PRN PO HEARTBURN / GAS; Start 01/20/22 at 10:45 Zolpidem Tartrate (Ambien) 5 mg PRN QHS PRN PO INSOMNIA, MAY REPEAT IN 1HR; Start 01/20/22 at 10:45 Enoxaparin Sodium (Lovenox 40mg Syringe) 40 mg Q24H SQ Last administered on 01/21/22at 12:36; Start 01/20/22 at 11:00 Sodium Chloride (Normal Saline Flush) 3 ml QSHIFT PRN IV AFTER MEDS AND BLOOD DRAWS; Start 01/20/22 at 10:45 Lorazepam (Ativan Inj) 1 mg PRN 1X PRN IVP ANXIETY/AGITATION; Start 01/20/22 at 10:45 Nicotine (Nicoderm Cq 21mg) 1 patch DAILY TD Last administered on 01/20/22at 16:39; Start 01/20/22 at 12:00 Active Scripts Active Cozaar (Losartan Potassium) 50 Mg Tablet 50 Mg PO DAILY 30 Days Aspirin Ec (Aspirin) 81 Mg Tablet.dr 81 Mg PO DAILYWBKFT 30 Days Carvedilol (Carvedilol) 6.25 Mg Tablet 6.25 Mg PO BIDWMEALS 30 Days Amlodipine Besylate 10 Mg Tablet 10 Mg PO DAILY 30 Days Vitals/I & O Vital Sign - Last 24 Hours 01/20/22 01/20/22 01/20/22 01/20/22 16:00 16:00 17:00 18:00 Temp 98.3 98.3 Pulse 74 75 80 Resp 19 19 19 B/P (MAP) 149/83 (105) 142/84 (103) 156/82 (106) Pulse Ox 99 2 97 O2 Delivery Nasal Cannula Nasal Cannula Nasal Cannula Nasal Cannula O2 Flow Rate 2.0 2.0 2.0 01/20/22 01/20/22 01/20/22 01/20/22 19:00 20:00 20:00 20:00 Temp 97.6 97.6 Pulse 76 74 Resp 14 16 B/P (MAP) 153/98 (116) 120/74 (89) Pulse Ox 94 94 O2 Delivery Nasal Cannula Nasal Cannula Room Air O2 Flow Rate 2.0 2.0 01/20/22 01/20/22 01/20/22 01/20/22 21:00 21:00 22:00 23:00 Pulse 71 72 71 71 Resp 21 18 18 B/P (MAP) 134/74 131/72 (91) 132/74 (93) 143/86 (105) Pulse Ox 95 97 95 O2 Delivery Room Air Room Air Room Air 01/21/22 01/21/22 01/21/22 01/21/22 00:00 00:00 01:00 02:00 Temp 98.2 98.2 Pulse 74 75 71 Resp 17 16 16 B/P (MAP) 100/58 (72) 110/68 (82) 115/65 (82) Pulse Ox 94 96 98 O2 Delivery Room Air Room Air Room Air Room Air 01/21/22 01/21/22 01/21/22 01/21/22 03:00 04:00 04:00 05:00 Pulse 76 78 83 Resp 18 18 17 B/P (MAP) 140/77 (98) 141/75 (97) 148/95 (112) Pulse Ox 98 98 95 O2 Delivery Room Air Room Air Room Air Room Air 01/21/22 01/21/22 01/21/22 01/21/22 06:00 08:00 08:00 08:56 Pulse 81 80 77 Resp 18 18 B/P (MAP) 136/81 (99) 154/106 (122) 154/106 Pulse Ox 96 96 O2 Delivery Room Air Room Air Room Air 01/21/22 01/21/22 01/21/22 08:57 08:57 12:00 Temp 98.3 98.3 Pulse 76 76 72 Resp 18 B/P (MAP) 154/106 154/106 138/73 (94) Pulse Ox 98 O2 Delivery Room Air Intake and Output 01/20/22 01/20/22 01/21/22 15:00 23:00 07:00 Intake Total 780 ml 0 ml 0 ml Output Total 200 ml Balance 580 ml 0 ml 0 ml Images MRI of the brain without contrast, 01/20/2022 HISTORY: Hypertension left facial numbness and abnormal CT Multiple sequential imaging of the brain performed without contrast There is profound markedly abnormal signal in the brainstem including the [place] and mesencephalon as well as abnormal activity in the middle cerebellar peduncles with high signal on T2 and FLAIR and low signal on T1. The [place] appears mildly swollen. Similarly there is abnormal signal within the periventricular white matter. There is a single focus of residual water motion at the left parietal lobe near the midline. There is a mass within the ethmoid air cells on the right with occlusion of the osteal complex and filling of the right maxillary sinus with fluid. There is a 1.6 cm x 0.2 cm cutaneous lesion in the scalp posteriorly on the right. There is no hydrocephalus. There is no extra-axial fluid collections. IMPRESSION: 1. There is only one single tiny focus of acute ischemia at the left parasagittal parietal cortex. 2. There is profound white matter disease especially involving the brainstem and middle cerebellar peduncles. The appearance is nonspecific and could be s econdary to a toxic or metabolic insult or could be PRESS. Given the swelling of the [place] a neoplasm such as lymphoma or glioma should be considered. 3. There is a mass involving the ethmoid air cells on the right and the right osteal complex with opacification of the right maxillary sinus. 4. There is a small cutaneous mass posteriorly on the right. Justicifation of Admission Dx: Justifications for Admission: Justification of Admission Dx: Yes Hypertension: New-Onset ENRIQUETA FITCH MD Jan 21, 2022 15:07
[2022-01-21] MEDS: ATORVASTATIN CALCIUM 40 MG TABLET. PO SCH (20:49)
[2022-01-22 03:22] VITALS: BP 183/90
[2022-01-22 07:00] VITALS: BP 175/96
--- NOTE | 2022-01-22 08:55 | PDOC ---
PROGRESS NOTES Date of Service DATE: 01/22/22 TIME: 08:53 Assessment Problems Medical Problems: (1) Brainstem stroke Status: Acute Small acute stroke, left parasagittal parietal cortex, not clinically germane. White matter disease especially involving the brainstem and middle cerebellar peduncles. 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 Rule out other causes Mass involving the ethmoid air cells on the right and the right osteal complex with opacification of the right maxillary sinus. Small cutaneous mass posteriorly on the right. Dysarthria, ataxia, some confusion, related to alcohol use as well as the PRES Hypoplastic but patent right vertebral artery. Alcohol and tobacco use Lipid profile normal yesterday on the previous admission. Hypertension. Plan Continue current blood pressure medicines Continue statin Aspirin Repeat MRI of the brain with and without contrast today Rehabilitation modalities Alcohol withdrawal protocol Nicotine patch I will consider transfer to a tertiary center depending on the MRI results Otherwise, he will need some inpatient rehab. At first he was not agreeable, but he is willing to consider this Subjective No complaints Objective Vital Signs Date Time Temp Pulse Resp B/P (MAP) Pulse Ox O2 Delivery O2 Flow Rate FiO2 01/22/22 07:00 97.0 82 18 175/96 (122) 99 Room Air 97.0 Intake and Output 01/22/22 07:00 Intake Total 260 ml Output Total 550 ml Balance -290 ml Intake Oral 260 ml Output Urine Total 550 ml # Voids 1 PHYSICAL EXAM Alert, oriented to person, place, time PERRL. EOMI. CN: no focal findings. Muscle tone: normal. Muscle strength: 4/5 DTR: 2+ Plantar reflex: Flexor Gait: not examined in bed. Sensory exam: no abnormal findings. No cerebellar signs elicited. Review of Relevant I have reviewed the following items lauren (where applicable) has been applied. Medications Current Medications Iohexol (Omnipaque 350 Mg/ml) 75 ml 1X ONCE IV Last administered on 01/19/22at 23:00; Start 01/19/22 at 23:00; Stop 01/19/22 at 23:03; Status DC Info (CONTRAST GIVEN -- Rx MONITORING) 1 each PRN DAILY PRN MC SEE COMMENTS; Start 01/19/22 at 23:15; Stop 01/21/22 at 23:14; Status DC Aspirin (Galileo Aspirin) 325 mg 1X ONCE PO Last administered on 01/20/22at 00:42; Start 01/20/22 at 00:30; Stop 01/20/22 at 00:36; Status DC Sodium Chloride (Normal Saline Flush) 3 ml QSHIFT PRN IV AFTER MEDS AND BLOOD DRAWS; Start 01/20/22 at 02:00 Lorazepam (Ativan) 4 mg PRN Q1HR PRN PO For CIWA 8-14 Last administered on 01/21/22at 12:36; Start 01/20/22 at 10:30 Lorazepam (Ativan) 8 mg PRN Q1HR PRN PO For CIWA 15 or greater Last administered on 01/20/22at 15:28; Start 01/20/22 at 10:30 Lorazepam (Ativan Inj) 2 mg PRN Q1HR PRN IV For CIWA 8-14; Start 01/20/22 at 10:30 Lorazepam (Ativan Inj) 4 mg PRN Q1HR PRN IV For CIWA 15 or greater; Start 01/20/22 at 10:30 Lorazepam (Ativan Inj) 1 mg 1X ONCE IVP ; Start 01/20/22 at 10:30; Stop 01/20/22 at 10:31; Status Cancel Amlodipine Besylate (Norvasc) 10 mg DAILY PO Last administered on 01/21/22 08:56; Start 01/20/22 at 11:00 Aspirin (Ecotrin) 81 mg DAILYWBKFT PO Last administered on 01/21/22 08:56; Start 01/21/22 at 08:00 Carvedilol (Coreg) 6.25 mg BIDWMEALS PO Last administered on 01/21/22 08:57; Start 01/20/22 at 11:00 Losartan Potassium (Cozaar) 50 mg DAILY PO Last administered on 01/21/22 08:57; Start 01/20/22 at 11:00 Atorvastatin Calcium (Lipitor) 40 mg QHS PO ; Start 01/20/22 at 21:00 Hydralazine HCl (Apresoline Inj) 10 mg PRN Q4HRS PRN IVP ELEVATED BP, SEE COMMENTS; Start 01/20/22 at 10:45 Acetaminophen (Tylenol) 650 mg PRN Q6HRS PRN PO Headaches, Temp > 101.5' Last administered on 01/21/22at 12:37; Start 01/20/22 at 10:45 Ondansetron HCl (Zofran) 4 mg PRN Q6HRS PRN IVP NAUSEA/VOMITING; Start 01/20/22 at 10:45 Al Hydroxide/Mg Hydroxide (Mylanta Plus Xs) 30 ml PRN Q3HRS PRN PO HEARTBURN / GAS; Start 01/20/22 at 10:45 Calcium Carbonate/ Glycine (Tums) 500 mg PRN Q3HRS PRN PO HEARTBURN / GAS; Start 01/20/22 at 10:45 Zolpidem Tartrate (Ambien) 5 mg PRN QHS PRN PO INSOMNIA, MAY REPEAT IN 1HR; Start 01/20/22 at 10:45 Enoxaparin Sodium (Lovenox 40mg Syringe) 40 mg Q24H SQ Last administered on 01/21/22at 12:36; Start 01/20/22 at 11:00 Sodium Chloride (Normal Saline Flush) 3 ml QSHIFT PRN IV AFTER MEDS AND BLOOD DRAWS; Start 01/20/22 at 10:45 Lorazepam (Ativan Inj) 1 mg PRN 1X PRN IVP ANXIETY/AGITATION; Start 01/20/22 at 10:45 Nicotine (Nicoderm Cq 21mg) 1 patch DAILY TD Last administered on 01/20/22at 16:39; Start 01/20/22 at 12:00 Active Scripts Active Cozaar (Losartan Potassium) 50 Mg Tablet 50 Mg PO DAILY 30 Days Aspirin Ec (Aspirin) 81 Mg Tablet.dr 81 Mg PO DAILYWBKFT 30 Days Carvedilol (Carvedilol) 6.25 Mg Tablet 6.25 Mg PO BIDWMEALS 30 Days Amlodipine Besylate 10 Mg Tablet 10 Mg PO DAILY 30 Days Vitals/I & O Vital Sign - Last 24 Hours 01/21/22 01/21/22 01/21/22 01/21/22 08:56 08:57 08:57 12:00 Temp 98.3 98.3 Pulse 77 76 76 72 Resp 18 B/P (MAP) 154/106 154/106 154/106 138/73 (94) Pulse Ox 98 O2 Delivery Room Air 01/21/22 01/21/22 01/21/22 01/21/22 15:00 19:48 20:00 23:13 Temp 97.3 97.8 98.5 97.3 97.8 98.5 Pulse 69 75 82 Resp 18 16 16 B/P (MAP) 146/89 (108) 156/93 (114) 145/76 (99) Pulse Ox 100 97 99 O2 Delivery Room Air Room Air Room Air Room Air 01/22/22 01/22/22 03:22 07:00 Temp 97.8 97.0 97.8 97.0 Pulse 83 82 Resp 16 18 B/P (MAP) 183/90 (121) 175/96 (122) Pulse Ox 98 99 O2 Delivery Room Air Room Air Intake and Output 01/21/22 01/21/22 01/22/22 15:00 23:00 07:00 Intake Total 250 ml 10 ml 0 ml Output Total 0 ml 550 ml Balance 250 ml 10 ml -550 ml Justicifation of Admission Dx: Justifications for Admission: Justification of Admission Dx: Yes Hypertension: New-Onset ENRIQUETA FITCH MD Jan 22, 2022 08:55
[2022-01-22 10:44] VITALS: BP 147/86
[2022-01-22 12:00] VITALS: BP 147/86
--- NOTE | 2022-01-22 12:13 | PDOC ---
[facility] PROGRESS NOTE Date of Service DOS: DATE: 01/22/22 TIME: 12:11 Chief Complaint Chief Complaint Small acute stroke, left parasagittal parietal cortex, White matter disease of the brainstem and middle cerebellar peduncles. Posterior Reversible Encephalopathy Syndrome Dysarthria, ataxia, some confusion, related to alcohol use as well as the PRES Alcohol abuse, withdrawl disorder tobacco abuse disorder Hypertension, urgenccy on admti, History of Present Illness History of Present Illness 01/22, out of ICU, Neuro followintg will repeat MRI needs rehab placement 01/21: Patient evaluated in ICU with at bedside. She reports some h allucinations overnight, and admits to history of alcohol abuse. Patient currently on CIWA protocol. No new or worsening neurological symptoms. MRI showed only one single tiny focus of acute ischemia at the left parasagittal parietal cortex, profound white matter disease especially involving the brainstem and middle cerebellar peduncles with nonspecific appearance that could be secondary to a toxic or metabolic insult or could be PRESS. Given the swelling of the [place] a neoplasm such as lymphoma or glioma should be considered. We will continue current medications and continue to follow neurology recommendations. 30 minutes critical care time spent reviewing charts, reviewing labs, reviewing imaging, discussion with patient's , and discussed with RN. Vitals/I&O Vitals/I&O: Vital Signs Date Time Temp Pulse Resp B/P (MAP) Pulse Ox O2 Delivery O2 Flow Rate FiO2 01/22/22 10:44 97.5 81 18 147/86 (106) 100 Room Air 97.5 01/22/22 08:00 2.0 I & O 01/21/22 01/21/22 01/22/22 15:00 23:00 07:00 Intake Total 250 ml 10 ml 0 ml Output Total 0 ml 550 ml Balance 250 ml 10 ml -550 ml Physical Exam General: Alert, Oriented X3, Cooperative, No acute distress Heart: Regular rate Lungs: Clear Abdomen: Soft, No tenderness Extremities: No clubbing, No cyanosis Skin: No rashes, No breakdown Assessment and Plan Assessmemt and Plan Problems Medical Problems: (1) Brainstem stroke Status: Acute Comment Review of Relevant I have reviewed the following items lauren (where applicable) has been applied. Justifications for Admission Other Justification EKATERINA VILLALOBOS MD Jan 22, 2022 12:13
[2022-01-22] MEDS ORDERED: SALIVA STIMULANT AGENT 44ML SPRAY BOTTLE. PO PRN (12:30)
[2022-01-22] MEDS ORDERED: POTASSIUM CL 20MEQ D5-0.45NACL 1,000 ML IV ONE (13:00)
[2022-01-22 14:01] LABS: BASO # 0.1 x10^3/uL (0.0-0.2); BASO % 1 % (0-3); EOS # 0.1 x10^3/uL (0.0-0.7); EOS % 2 % (0-3); HEMATOCRIT 44.7 % (39.0-53.0); HEMOGLOBIN 15.5 g/dL (13.0-17.5); LYMPH # 1.1 x10^3/uL (1.0-4.8); LYMPH % 16 % (24-48); MEAN CORPUSCULAR HEMOGLOBIN 36 pg (25-35); MEAN CORPUSCULAR HGB CONC 35 g/dL (31-37); MEAN CORPUSCULAR VOLUME 103 fL (79-100); MONO # 0.7 x10^3/uL (0.0-1.1); MONO % 10 % (0-9); NEUT # 4.8 x10^3/uL (1.8-7.7); NEUT % 71 % (31-73); PLATELET COUNT 220 x10^3/uL (140-400); RED BLOOD COUNT 4.34 x10^6/uL (4.30-5.70); RED CELL DISTRIBUTION WIDTH 13.8 % (11.5-14.5); WHITE BLOOD COUNT 6.8 x10^3/uL (4.0-11.0)
[2022-01-22 14:21] LABS: ALBUMIN 3.6 g/dL (3.4-5.0); ALBUMIN/GLOBULIN RATIO 0.8 (1.0-1.7); CALCIUM 9.3 mg/dL (8.5-10.1); CREATININE 1.4 mg/dL (0.7-1.3); GFR 55.6; POTASSIUM 4.1 mmol/L (3.5-5.1); TOTAL PROTEIN 8.2 g/dL (6.4-8.2)
[2022-01-22] MEDS: CARVEDILOL 6.25 MG TABLET. PO SCH ×2 (15:01→16:46)
[2022-01-22] MEDS: LOSARTAN POTASSIUM 50 MG TABLET. PO SCH (15:02)
[2022-01-22] MEDS: ASPIRIN ENTERIC COATED 81 MG TABLET.DR. PO SCH (15:02)
[2022-01-22] MEDS: ENOXAPARIN 40 MG/0.4 ML SYRINGE. SQ SCH (15:02)
[2022-01-22] MEDS: NICOTINE 21MG PATCH. TD SCH (15:05)
[2022-01-22] MEDS ORDERED: GADOTERATE 7.5 MMOL/15ML VIAL. IVP ONE (15:15)
[2022-01-22 18:57] VITALS: BP 119/73
[2022-01-22] MEDS: ATORVASTATIN CALCIUM 40 MG TABLET. PO SCH (19:53)
[2022-01-22 22:36] VITALS: BP 118/65
[2022-01-23 02:41] VITALS: BP 148/77
[2022-01-23 07:00] VITALS: BP 157/91
--- NOTE | 2022-01-23 08:48 | RAD ---
MRI BRAIN WO+W History:Reason: brainstem swelling 15mL CLARISCAN / Spl. Instructions: / History: Technique: Multiplanar, multi sequential without and with intravenous contrast MR imaging was perform ed of the brain. Comparison: January 20, 2022 Findings: Motion degraded evaluation. Acute left superior frontal subcortical infarct (series [id number] image #50) additional acute infarct with in the right occipital lobe (image 39). Extensive T2 and FLAIR hyperintensities throughout the brainstem with involvement of the middle cereb ral peduncles and cerebellar peduncles as well as extension into the left cerebellum. There is expans ion of the brainstem predominantly within the [place]. Overall similar extent compared to prior. No enha ncement. Mild dilatation of the lateral and third ventricles. There is confluent periventricular FLAIR hyperin tensity, unchanged. Mild inferior cerebellar tonsillar ectopia, unchanged. Right posterior scalp subcutaneous lobulated mass measures 1.4 x 1.6 cm, similar compared to prior. Imaged orbits are unremarkable. Complete opacification of the right maxillary sinus with expansion in to the ostiomeatal unit. Partial opacification of right ethmoid air cells. Impression: 1. Motion degraded evaluation. 2. Acute left frontal and right occipital infarcts. 3. Extensive edema throughout the brainstem and adjacent structures with expansion of the [place] and a djacent mass effect, unchanged. Findings can be seen with posterior reversible encephalopathy syndrom e, encephalitis, toxic etiology or metabolic process. Recommend continued follow-up. 4. Unchanged mild dilatation of the lateral and third ventricles with periventricular signal abnorma lity, may represent transependymal edema. 5. Complete opacification of the right maxillary sinus with expansion of the ostiomeatal unit, may r epresent mucocele. 6. Right posterior scalp lobulated lesion. Recommend further clinical evaluation. FOR INTERNAL CODING PURPOSES Critical result: Findings discussed with patient's nurse at 01/23/2022 8:39 AM. RESULT CODE: (C) Electronically signed by: Jameel Paredes DO (01/23/2022 8:46 AM) [id number]
[2022-01-23] MEDS ORDERED: HALOPERIDOL 5 MG TABLET. PO ONE (09:00)
--- NOTE | 2022-01-23 09:00 | PDOC ---
PROGRESS NOTES Date of Service DATE: 01/23/22 TIME: 08:56 Assessment Problems Medical Problems: (1) Brainstem stroke Status: Acute Has been more confused, has incontinence Small acute stroke, left parasagittal parietal cortex, not clinically germane. White matter disease, edema, especially involving the brainstem and middle cerebellar peduncles. 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 Rule out other causes. Reviewed repeat MRI from 01/22 Mass involving the ethmoid air cells on the right and the right osteal complex with opacification of the right maxillary sinus. Small cutaneous mass posteriorly on the right. Dysarthria, ataxia, some confusion, related to alcohol use as well as the PRES Hypoplastic but patent right vertebral artery. Alcohol and tobacco use Lipid profile normal yesterday on the previous admission. Hypertension. Plan Continue current blood pressure medicines Continue statin Aspirin Repeat MRI of the brain with and without contrast in 2 weeks, or earlier if ther e are clinical changes Rehabilitation modalities Alcohol withdrawal protocol Nicotine patch Hold on transfer to a tertiary center given stability of the MRI results He will need some inpatient rehab. Suggest [facility] rehab. Patient is agreeable. Also discussed with patient's Subjective No complaints, denies headache Objective Vital Signs Date Time Temp Pulse Resp B/P (MAP) Pulse Ox O2 Delivery O2 Flow Rate FiO2 01/23/22 08:13 Room Air 01/23/22 07:00 98.2 80 18 157/91 (113) 95 98.2 01/22/22 08:00 2.0 Intake and Output 01/23/22 07:00 Intake Total 1350 ml Output Total 500 ml Balance 850 ml Intake Oral 350 ml IV Total 1000 ml Output Urine Total 500 ml PHYSICAL EXAM Alert, oriented to person, place, time PERRL. EOMI. CN: no focal findings. Muscle tone: normal. Muscle strength: 4/5 DTR: 2+ Plantar reflex: Flexor Gait: not examined in bed. Sensory exam: no abnormal findings. No cerebellar signs elicited. Review of Relevant I have reviewed the following items lauren (where applicable) has been applied. Labs Laboratory Tests Test 01/22/22 13:20 01/22/22 13:30 White Blood Count 6.8 x10^3/uL (4.0-11.0) Red Blood Count 4.34 x10^6/uL (4.30-5.70) Hemoglobin 15.5 g/dL (13.0-17.5) Hematocrit 44.7 % (39.0-53.0) Mean Corpuscular Volume 103 fL (79-100) Mean Corpuscular Hemoglobin 36 pg (25-35) Mean Corpuscular Hemoglobin Concent 35 g/dL (31-37) Red Cell Distribution Width 13.8 % (11.5-14.5) Platelet Count 220 x10^3/uL (140-400) Neutrophils (%) (Auto) 71 % (31-73) Lymphocytes (%) (Auto) 16 % (24-48) Monocytes (%) (Auto) 10 % (0-9) Eosinophils (%) (Auto) 2 % (0-3) Basophils (%) (Auto) 1 % (0-3) Neutrophils # (Auto) 4.8 x10^3/uL (1.8-7.7) Lymphocytes # (Auto) 1.1 x10^3/uL (1.0-4.8) Monocytes # (Auto) 0.7 x10^3/uL (0.0-1.1) Eosinophils # (Auto) 0.1 x10^3/uL (0.0-0.7) Basophils # (Auto) 0.1 x10^3/uL (0.0-0.2) Sodium Level 134 mmol/L (136-145) Potassium Level 4.1 mmol/L (3.5-5.1) Chloride Level 98 mmol/L (98-107) Carbon Dioxide Level 26 mmol/L (21-32) Anion Gap 10 (6-14) Blood Urea Nitrogen 35 mg/dL (8-26) Creatinine 1.4 mg/dL (0.7-1.3) Estimated GFR (Cockcroft-Gault) 55.6 BUN/Creatinine Ratio 25 (6-20) Glucose Level 129 mg/dL (70-99) Calcium Level 9.3 mg/dL (8.5-10.1) Total Bilirubin 1.0 mg/dL (0.2-1.0) Aspartate Amino Transf (AST/SGOT) 43 U/L (15-37) Alanine Aminotransferase (ALT/SGPT) 58 U/L (16-63) Alkaline Phosphatase 105 U/L (46-116) Total Protein 8.2 g/dL (6.4-8.2) Albumin 3.6 g/dL (3.4-5.0) Albumin/Globulin Ratio 0.8 (1.0-1.7) Laboratory Tests Test 01/22/22 13:20 01/22/22 13:30 White Blood Count 6.8 x10^3/uL (4.0-11.0) Red Blood Count 4.34 x10^6/uL (4.30-5.70) Hemoglobin 15.5 g/dL (13.0-17.5) Hematocrit 44.7 % (39.0-53.0) Mean Corpuscular Volume 103 fL (79-100) Mean Corpuscular Hemoglobin 36 pg (25-35) Mean Corpuscular Hemoglobin Concent 35 g/dL (31-37) Red Cell Distribution Width 13.8 % (11.5-14.5) Platelet Count 220 x10^3/uL (140-400) Neutrophils (%) (Auto) 71 % (31-73) Lymphocytes (%) (Auto) 16 % (24-48) Monocytes (%) (Auto) 10 % (0-9) Eosinophils (%) (Auto) 2 % (0-3) Basophils (%) (Auto) 1 % (0-3) Neutrophils # (Auto) 4.8 x10^3/uL (1.8-7.7) Lymphocytes # (Auto) 1.1 x10^3/uL (1.0-4.8) Monocytes # (Auto) 0.7 x10^3/uL (0.0-1.1) Eosinophils # (Auto) 0.1 x10^3/uL (0.0-0.7) Basophils # (Auto) 0.1 x10^3/uL (0.0-0.2) Sodium Level 134 mmol/L (136-145) Potassium Level 4.1 mmol/L (3.5-5.1) Chloride Level 98 mmol/L (98-107) Carbon Dioxide Level 26 mmol/L (21-32) Anion Gap 10 (6-14) Blood Urea Nitrogen 35 mg/dL (8-26) Creatinine 1.4 mg/dL (0.7-1.3) Estimated GFR (Cockcroft-Gault) 55.6 BUN/Creatinine Ratio 25 (6-20) Glucose Level 129 mg/dL (70-99) Calcium Level 9.3 mg/dL (8.5-10.1) Total Bilirubin 1.0 mg/dL (0.2-1.0) Aspartate Amino Transf (AST/SGOT) 43 U/L (15-37) Alanine Aminotransferase (ALT/SGPT) 58 U/L (16-63) Alkaline Phosphatase 105 U/L (46-116) Total Protein 8.2 g/dL (6.4-8.2) Albumin 3.6 g/dL (3.4-5.0) Albumin/Globulin Ratio 0.8 (1.0-1.7) Medications Current Medications Iohexol (Omnipaque 350 Mg/ml) 75 ml 1X ONCE IV Last administered on 01/19/22at 23:00; Start 01/19/22 at 23:00; Stop 01/19/22 at 23:03; Status DC Info (CONTRAST GIVEN -- Rx MONITORING) 1 each PRN DAILY PRN MC SEE COMMENTS; Start 01/19/22 at 23:15; Stop 01/21/22 at 23:14; Status DC Aspirin (Galileo Aspirin) 325 mg 1X ONCE PO Last administered on 01/20/22at 00:42; Start 01/20/22 at 00:30; Stop 01/20/22 at 00:36; Status DC Sodium Chloride (Normal Saline Flush) 3 ml QSHIFT PRN IV AFTER MEDS AND BLOOD DRAWS; Start 01/20/22 at 02:00 Lorazepam (Ativan) 4 mg PRN Q1HR PRN PO For CIWA 8-14 Last administered on 01/21/22at 12:36; Start 01/20/22 at 10:30 Lorazepam (Ativan) 8 mg PRN Q1HR PRN PO For CIWA 15 or greater Last administered on 01/20/22at 15:28; Start 01/20/22 at 10:30 Lorazepam (Ativan Inj) 2 mg PRN Q1HR PRN IV For CIWA 8-14 Last administered on 01/22/22at 21:43; Start 01/20/22 at 10:30 Lorazepam (Ativan Inj) 4 mg PRN Q1HR PRN IV For CIWA 15 or greater; Start 01/20/22 at 10:30 Lorazepam (Ativan Inj) 1 mg 1X ONCE IVP ; Start 01/20/22 at 10:30; Stop 01/20/22 at 10:31; Status Cancel Amlodipine Besylate (Norvasc) 10 mg DAILY PO Last administered on 01/22/22 15:01; Start 01/20/22 at 11:00 Aspirin (Ecotrin) 81 mg DAILYWBKFT PO Last administered on 01/22/22 15:02; Start 01/21/22 at 08:00 Carvedilol (Coreg) 6.25 mg BIDWMEALS PO Last administered on 01/22/22 16:46; Start 01/20/22 at 11:00 Losartan Potassium (Cozaar) 50 mg DAILY PO Last administered on 01/22/22 15:02; Start 01/20/22 at 11:00 Atorvastatin Calcium (Lipitor) 40 mg QHS PO Last administered on 01/22/22 19:53; Start 01/20/22 at 21:00 Hydralazine HCl (Apresoline Inj) 10 mg PRN Q4HRS PRN IVP ELEVATED BP, SEE COMMENTS; Start 01/20/22 at 10:45 Acetaminophen (Tylenol) 650 mg PRN Q6HRS PRN PO Headaches, Temp > 101.5' Last administered on 01/21/22 12:37; Start 01/20/22 at 10:45 Ondansetron HCl (Zofran) 4 mg PRN Q6HRS PRN IVP NAUSEA/VOMITING; Start 01/20/22 at 10:45 Al Hydroxide/Mg Hydroxide (Mylanta Plus Xs) 30 ml PRN Q3HRS PRN PO HEARTBURN / GAS; Start 01/20/22 at 10:45 Calcium Carbonate/ Glycine (Tums) 500 mg PRN Q3HRS PRN PO HEARTBURN / GAS; Start 01/20/22 at 10:45 Zolpidem Tartrate (Ambien) 5 mg PRN QHS PRN PO INSOMNIA, MAY REPEAT IN 1HR; Start 01/20/22 at 10:45 Enoxaparin Sodium (Lovenox 40mg Syringe) 40 mg Q24H SQ Last administered on 01/22/22at 15:02; Start 01/20/22 at 11:00 Sodium Chloride (Normal Saline Flush) 3 ml QSHIFT PRN IV AFTER MEDS AND BLOOD DRAWS; Start 01/20/22 at 10:45 Lorazepam (Ativan Inj) 1 mg PRN 1X PRN IVP ANXIETY/AGITATION; Start 01/20/22 at 10:45 Nicotine (Nicoderm Cq 21mg) 1 patch DAILY TD Last administered on 01/22/22at 1 5:05; Start 01/20/22 at 12:00 Potassium Chloride/Dextrose/ Sod Cl 1,000 ml @ 100 mls/hr Q10H ONCE IV Last administered on 01/22/22at 15:03; Start 01/22/22 at 13:00; Stop 01/22/22 at 22:59; Status DC Saliva Substitute (Biotene Moisturizing Mouth) 2 spray PRN Q15MIN PRN PO DRY MOUTH; Start 01/22/22 at 12:30 Gadoterate Meglumine (Clariscan) 15 ml 1X ONCE IVP Last administered on 2at 16:10; Start 01/22/22 at 15:15; Stop 01/22/22 at 15:16; Status DC Active Scripts Active Cozaar (Losartan Potassium) 50 Mg Tablet 50 Mg PO DAILY 30 Days Aspirin Ec (Aspirin) 81 Mg Tablet.dr 81 Mg PO DAILYWBKFT 30 Days Carvedilol (Carvedilol) 6.25 Mg Tablet 6.25 Mg PO BIDWMEALS 30 Days Amlodipine Besylate 10 Mg Tablet 10 Mg PO DAILY 30 Days Vitals/I & O Vital Sign - Last 24 Hours 01/22/22 01/22/22 01/22/22 01/22/22 10:44 12:00 15:01 15:01 Temp 97.5 97.5 97.5 97.5 Pulse 81 81 81 81 Resp 18 B/P (MAP) 147/86 (106) 147/86 (106) 147/86 147/86 Pulse Ox 100 100 O2 Delivery Room Air Room Air 01/22/22 01/22/22 01/22/22 01/22/22 15:02 16:46 18:57 19:28 Temp 97.7 97.7 Pulse 81 81 76 Resp 18 B/P (MAP) 147/86 147/86 119/73 (88) Pulse Ox 97 O2 Delivery Room Air Room Air 4/4/22 4/5/22 4/5/22 4/5/22 22:36 02:41 07:00 08:13 Temp 97.9 98.0 98.2 97.9 98.0 98.2 Pulse 74 70 80 Resp 16 16 18 B/P (MAP) 118/65 (82) 148/77 (100) 157/91 (113) Pulse Ox 98 95 95 O2 Delivery Room Air Room Air Room Air Room Air Intake and Output 01/22/22 01/22/22 01/23/22 15:00 23:00 07:00 Intake Total 0 ml 350 ml 1000 ml Output Total 500 ml Balance 0 ml -150 ml 1000 ml Images MRI BRAIN WO+W History:Reason: brainstem swelling 15mL CLARISCAN / Spl. Instructions: / History: Technique: Multiplanar, multi sequential without and with intravenous contrast MR imaging was performed of the brain. Comparison: January 20, 2022 Findings: Motion degraded evaluation. Acute left superior frontal subcortical infarct (series [id number] image #50) additional acute infarct within the right occipital lobe (image 39). Extensive T2 and FLAIR hyperintensities throughout the brainstem with involvement of the middle cerebral peduncles and cerebellar peduncles as well as extension into the left cerebellum. There is expansion of the brainstem predominantly within the [place]. Overall similar extent compared to prior. No enhancement. Mild dilatation of the lateral and third ventricles. There is confluent periventricular FLAIR hyperintensity, unchanged. Mild inferior cerebellar tonsillar ectopia, unchanged. Right posterior scalp subcutaneous lobulated mass measures 1.4 x 1.6 cm, similar compared to prior. Imaged orbits are unremarkable. Complete opacification of the right maxillary sinus with expansion into the ostiomeatal unit. Partial opacification of right ethmoid air cells. Impression: 1. Motion degraded evaluation. 2. Acute left frontal and right occipital infarcts. 3. Extensive edema throughout the brainstem and adjacent structures with expansion of the [place] and adjacent mass effect, unchanged. Findings can be seen with posterior reversible encephalopathy syndrome, encephalitis, toxic etiology or metabolic process. Recommend continued follow-up. 4. Unchanged mild dilatation of the lateral and third ventricles with periventricular signal abnormality, may represent transependymal edema. 5. Complete opacification of the right maxillary sinus with expansion of the ostiomeatal unit, may represent mucocele. 6. Right posterior scalp lobulated lesion. Recommend further clinical evaluation. Justicifation of Admission Dx: Justifications for Admission: Justification of Admission Dx: Yes Hypertension: New-Onset ENRIQUETA FITCH MD Jan 23, 2022 08:59
[2022-01-23] MEDS: NICOTINE 21MG PATCH. TD SCH (09:12)
[2022-01-23] MEDS: ASPIRIN ENTERIC COATED 81 MG TABLET.DR. PO SCH (09:13)
[2022-01-23] MEDS: CARVEDILOL 6.25 MG TABLET. PO SCH ×2 (09:13→17:00)
[2022-01-23] MEDS: LOSARTAN POTASSIUM 50 MG TABLET. PO SCH (09:13)
[2022-01-23 11:00] VITALS: BP 147/81
--- NOTE | 2022-01-23 11:16 | NUR ---
SS following for discharge planning. SS reviewed pt chart and discussed with pt RN. Pt is from home with spouse and is currently on room air. Neurology following. Pt had change of status. MRI today. PT/OT recommending acute rehabilitation today. Referral to [facility], ; fax [phone], requested. SS phoned and faxed referral as requested. COVID19 PCR pending for placement. Per physician, not ready today. SS will continue to follow for discharge planning.
--- NOTE | 2022-01-23 13:16 | PDOC ---
[facility] [facility] PROGRESS NOTE Date of Service DOS: DATE: 01/23/22 TIME: 13:15 Chief Complaint Chief Complaint Small acute stroke, left parasagittal parietal cortex, White matter disease of the brainstem and middle cerebellar peduncles. Posterior Reversible Encephalopathy Syndrome Dysarthria, ataxia, some confusion, related to alcohol use as well as the PRES Alcohol abuse, withdrawl disorder tobacco abuse disorder Hypertension, urgenccy on admti, History of Present Illness History of Present Illness 01/23, swallow eval better this afternoon, more calm was hallucinating and agitated this AM, PO haldol x1 given, he was then lethargic but calm and coherent and motivated. followed directions 100%, needs rehab, cannot transfer well, eating better 01/22, out of ICU, Neuro followintg will repeat MRI needs rehab placement 01/21: Patient evaluated in ICU with at bedside. She reports some chávez llucinations overnight, and admits to history of alcohol abuse. Patient currently on CIWA protocol. No new or worsening neurological symptoms. MRI showed only one single tiny focus of acute ischemia at the left parasagittal parietal cortex, profound white matter disease especially involving the brainstem and middle cerebellar peduncles with nonspecific appearance that could be secondary to a toxic or metabolic insult or could be PRESS. Given the swelling of the [place] a neoplasm such as lymphoma or glioma should be considered. We will continue current medications and continue to follow neurology recommendations. 30 minutes critical care time spent reviewing charts, reviewing labs, reviewing imaging, discussion with patient's , and discussed with RN. Vitals/I&O Vitals/I&O: Vital Signs Date Time Temp Pulse Resp B/P (MAP) Pulse Ox O2 Delivery O2 Flow Rate FiO2 01/23/22 11:00 98.0 82 18 147/81 (103) 96 Room Air 98.0 01/22/22 08:00 2.0 I & O 01/22/22 01/22/22 01/23/22 15:00 23:00 07:00 Intake Total 0 ml 350 ml 1000 ml Output Total 500 ml Balance 0 ml -150 ml 1000 ml Physical Exam General: Alert, Oriented X3, Cooperative, No acute distress Heart: Regular rate Lungs: Clear Abdomen: Soft, No tenderness Extremities: No clubbing, No cyanosis Skin: No rashes, No breakdown Labs Labs: Laboratory Tests Test 01/22/22 13:20 01/22/22 13:30 White Blood Count 6.8 x10^3/uL (4.0-11.0) Red Blood Count 4.34 x10^6/uL (4.30-5.70) Hemoglobin 15.5 g/dL (13.0-17.5) Hematocrit 44.7 % (39.0-53.0) Mean Corpuscular Volume 103 fL (79-100) Mean Corpuscular Hemoglobin 36 pg (25-35) Mean Corpuscular Hemoglobin Concent 35 g/dL (31-37) Red Cell Distribution Width 13.8 % (11.5-14.5) Platelet Count 220 x10^3/uL (140-400) Neutrophils (%) (Auto) 71 % (31-73) Lymphocytes (%) (Auto) 16 % (24-48) Monocytes (%) (Auto) 10 % (0-9) Eosinophils (%) (Auto) 2 % (0-3) Basophils (%) (Auto) 1 % (0-3) Neutrophils # (Auto) 4.8 x10^3/uL (1.8-7.7) Lymphocytes # (Auto) 1.1 x10^3/uL (1.0-4.8) Monocytes # (Auto) 0.7 x10^3/uL (0.0-1.1) Eosinophils # (Auto) 0.1 x10^3/uL (0.0-0.7) Basophils # (Auto) 0.1 x10^3/uL (0.0-0.2) Sodium Level 134 mmol/L (136-145) Potassium Level 4.1 mmol/L (3.5-5.1) Chloride Level 98 mmol/L (98-107) Carbon Dioxide Level 26 mmol/L (21-32) Anion Gap 10 (6-14) Blood Urea Nitrogen 35 mg/dL (8-26) Creatinine 1.4 mg/dL (0.7-1.3) Estimated GFR (Cockcroft-Gault) 55.6 BUN/Creatinine Ratio 25 (6-20) Glucose Level 129 mg/dL (70-99) Calcium Level 9.3 mg/dL (8.5-10.1) Total Bilirubin 1.0 mg/dL (0.2-1.0) Aspartate Amino Transf (AST/SGOT) 43 U/L (15-37) Alanine Aminotransferase (ALT/SGPT) 58 U/L (16-63) Alkaline Phosphatase 105 U/L (46-116) Total Protein 8.2 g/dL (6.4-8.2) Albumin 3.6 g/dL (3.4-5.0) Albumin/Globulin Ratio 0.8 (1.0-1.7) Assessment and Plan Assessmemt and Plan Problems Medical Problems: (1) Brainstem stroke Status: Acute Comment Review of Relevant I have reviewed the following items lauren (where applicable) has been applied. Medications: Current Medications Medications (Trade) Dose Ordered Sig/Catherine Route PRN Reason Start Time Stop Time Status Last Admin Dose Admin Gadoterate Meglumine (Clariscan) 15 ml 1X ONCE IVP 01/22/22 15:15 01/22/22 15:16 DC 01/22/22 16:10 Justifications for Admission Other Justification EKATERINA VILLALOBOS MD Jan 23, 2022 13:16
[2022-01-23] MEDS: ENOXAPARIN 40 MG/0.4 ML SYRINGE. SQ SCH (14:40)
[2022-01-23 15:00] VITALS: BP 109/67
[2022-01-23 19:41] VITALS: BP 115/56
[2022-01-23] MEDS: ATORVASTATIN CALCIUM 40 MG TABLET. PO SCH (20:18)
[2022-01-23 22:58] VITALS: BP 143/83
[2022-01-24 02:41] VITALS: BP 150/82
[2022-01-24 07:00] VITALS: BP 125/88
[2022-01-24] MEDS: ASPIRIN ENTERIC COATED 81 MG TABLET.DR. PO SCH (08:28)
[2022-01-24] MEDS: CARVEDILOL 6.25 MG TABLET. PO SCH ×2 (08:28→18:24)
[2022-01-24] MEDS: LOSARTAN POTASSIUM 50 MG TABLET. PO SCH (08:28)
[2022-01-24] MEDS: NICOTINE 21MG PATCH. TD SCH (08:31)
[2022-01-24] MEDS: ENOXAPARIN 40 MG/0.4 ML SYRINGE. SQ SCH (08:34)
--- NOTE | 2022-01-24 10:43 | PDOC ---
PROGRESS NOTES Date of Service DATE: 01/24/22 TIME: 10:41 Assessment Problems Medical Problems: (1) Brainstem stroke Status: Acute Confusion much better, no incontinence Small acute stroke, left parasagittal parietal cortex, not clinically germane. White matter disease, edema, especially involving the brainstem and middle cerebellar peduncles. 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 Rule out other causes. Reviewed repeat MRI from 01/22 Mass involving the ethmoid air cells on the right and the right osteal complex with opacification of the right maxillary sinus. Small cutaneous mass posteriorly on the right. Dysarthria, ataxia, some confusion, related to alcohol use as well as the PRES Hypoplastic but patent right vertebral artery. Alcohol and tobacco use Lipid profile normal yesterday on the previous admission. Hypertension. Plan Continue current blood pressure medicines Continue statin Aspirin Repeat MRI of the brain with and without contrast in 2 weeks, or earlier if there are clinical changes Rehabilitation modalities Alcohol withdrawal protocol Nicotine patch Hold on transfer to a tertiary center given stability of the MRI results He will need some inpatient rehab. Suggest [facility] rehab. Patient is agreeable. Also discussed with patient's Subjective No complaints Objective Vital Signs Date Time Temp Pulse Resp B/P (MAP) Pulse Ox O2 Delivery O2 Flow Rate FiO2 01/24/22 08:29 72 125/88 01/24/22 08:00 Room Air 01/24/22 07:00 97.8 18 96 97.8 Intake and Output 01/24/22 07:00 Intake Total 500 ml Output Total 200 ml Balance 300 ml Intake Oral 500 ml Output Urine Total 200 ml # Voids 1 PHYSICAL EXAM Alert, oriented to person, place, time PERRL. EOMI. CN: no focal findings. Muscle tone: normal. Muscle strength: 4/5 DTR: 2+ Plantar reflex: Flexor Gait: not examined in bed. Sensory exam: no abnormal findings. No cerebellar signs elicited. Review of Relevant I have reviewed the following items lauren (where applicable) has been applied. Labs Laboratory Tests Test 01/22/22 13:20 01/22/22 13:30 01/23/22 10:42 White Blood Count 6.8 x10^3/uL (4.0-11.0) Red Blood Count 4.34 x10^6/uL (4.30-5.70) Hemoglobin 15.5 g/dL (13.0-17.5) Hematocrit 44.7 % (39.0-53.0) Mean Corpuscular Volume 103 fL (79-100) Mean Corpuscular Hemoglobin 36 pg (25-35) Mean Corpuscular Hemoglobin Concent 35 g/dL (31-37) Red Cell Distribution Width 13.8 % (11.5-14.5) Platelet Count 220 x10^3/uL (140-400) Neutrophils (%) (Auto) 71 % (31-73) Lymphocytes (%) (Auto) 16 % (24-48) Monocytes (%) (Auto) 10 % (0-9) Eosinophils (%) (Auto) 2 % (0-3) Basophils (%) (Auto) 1 % (0-3) Neutrophils # (Auto) 4.8 x10^3/uL (1.8-7.7) Lymphocytes # (Auto) 1.1 x10^3/uL (1.0-4.8) Monocytes # (Auto) 0.7 x10^3/uL (0.0-1.1) Eosinophils # (Auto) 0.1 x10^3/uL (0.0-0.7) Basophils # (Auto) 0.1 x10^3/uL (0.0-0.2) Sodium Level 134 mmol/L (136-145) Potassium Level 4.1 mmol/L (3.5-5.1) Chloride Level 98 mmol/L (98-107) Carbon Dioxide Level 26 mmol/L (21-32) Anion Gap 10 (6-14) Blood Urea Nitrogen 35 mg/dL (8-26) Creatinine 1.4 mg/dL (0.7-1.3) Estimated GFR (Cockcroft-Gault) 55.6 BUN/Creatinine Ratio 25 (6-20) Glucose Level 129 mg/dL (70-99) Calcium Level 9.3 mg/dL (8.5-10.1) Total Bilirubin 1.0 mg/dL (0.2-1.0) Aspartate Amino Transf (AST/SGOT) 43 U/L (15-37) Alanine Aminotransferase (ALT/SGPT) 58 U/L (16-63) Alkaline Phosphatase 105 U/L (46-116) Total Protein 8.2 g/dL (6.4-8.2) Albumin 3.6 g/dL (3.4-5.0) Albumin/Globulin Ratio 0.8 (1.0-1.7) Coronavirus (COVID-19)(PCR) Not detected (NOT DETECTD) Laboratory Tests Test 01/23/22 10:42 Coronavirus (COVID-19)(PCR) Not detected (NOT DETECTD) Medications Current Medications Iohexol (Omnipaque 350 Mg/ml) 75 ml 1X ONCE IV Last administered on 01/19/22at 23:00; Start 01/19/22 at 23:00; Stop 01/19/22 at 23:03; Status DC Info (CONTRAST GIVEN -- Rx MONITORING) 1 each PRN DAILY PRN MC SEE COMMENTS; Start 01/19/22 at 23:15; Stop 01/21/22 at 23:14; Status DC Aspirin (Galileo Aspirin) 325 mg 1X ONCE PO Last administered on 01/20/22at 00:42; Start 01/20/22 at 00:30; Stop 01/20/22 at 00:36; Status DC Sodium Chloride (Normal Saline Flush) 3 ml QSHIFT PRN IV AFTER MEDS AND BLOOD DRAWS; Start 01/20/22 at 02:00 Lorazepam (Ativan) 4 mg PRN Q1HR PRN PO For CIWA 8-14 Last administered on 01/21/22at 12:36; Start 01/20/22 at 10:30 Lorazepam (Ativan) 8 mg PRN Q1HR PRN PO For CIWA 15 or greater Last administered on 01/20/22at 15:28; Start 01/20/22 at 10:30 Lorazepam (Ativan Inj) 2 mg PRN Q1HR PRN IV For CIWA 8-14 Last administered on 01/22/22at 21:43; Start 01/20/22 at 10:30 Lorazepam (Ativan Inj) 4 mg PRN Q1HR PRN IV For CIWA 15 or greater; Start 01/20/22 at 10:30 Lorazepam (Ativan Inj) 1 mg 1X ONCE IVP ; Start 01/20/22 at 10:30; Stop 01/20/22 at 10:31; Status Cancel Amlodipine Besylate (Norvasc) 10 mg DAILY PO Last administered on 01/24/22at 08:29; Start 01/20/22 at 11:00 Aspirin (Ecotrin) 81 mg DAILYWBKFT PO Last administered on 01/24/22at 08:28; Start 01/21/22 at 08:00 Carvedilol (Coreg) 6.25 mg BIDWMEALS PO Last administered on 01/24/22at 08:28; Start 01/20/22 at 11:00 Losartan Potassium (Cozaar) 50 mg DAILY PO Last administered on 01/24/22 08:28; Start 01/20/22 at 11:00 Atorvastatin Calcium (Lipitor) 40 mg QHS PO Last administered on 01/23/22at 20:18; Start 01/20/22 at 21:00 Hydralazine HCl (Apresoline Inj) 10 mg PRN Q4HRS PRN IVP ELEVATED BP, SEE COMMENTS; Start 01/20/22 at 10:45 Acetaminophen (Tylenol) 650 mg PRN Q6HRS PRN PO Headaches, Temp > 101.5' Last administered on 01/21/22at 12:37; Start 01/20/22 at 10:45 Ondansetron HCl (Zofran) 4 mg PRN Q6HRS PRN IVP NAUSEA/VOMITING; Start 01/20/22 at 10:45 Al Hydroxide/Mg Hydroxide (Mylanta Plus Xs) 30 ml PRN Q3HRS PRN PO HEARTBURN / GAS; Start 01/20/22 at 10:45 Calcium Carbonate/ Glycine (Tums) 500 mg PRN Q3HRS PRN PO HEARTBURN / GAS (1st Choice); Start 01/20/22 at 10:45 Zolpidem Tartrate (Ambien) 5 mg PRN QHS PRN PO INSOMNIA, MAY REPEAT IN 1HR; Start 01/20/22 at 10:45 Enoxaparin Sodium (Lovenox 40mg Syringe) 40 mg Q24H SQ Last administered on 01/24/22at 08:34; Start 01/20/22 at 11:00 Sodium Chloride (Normal Saline Flush) 3 ml QSHIFT PRN IV AFTER MEDS AND BLOOD DRAWS; Start 01/20/22 at 10:45 Lorazepam (Ativan Inj) 1 mg PRN 1X PRN IVP ANXIETY/AGITATION; Start 01/20/22 at 10:45 Nicotine (Nicoderm Cq 21mg) 1 patch DAILY TD Last administered on 01/24/22at 08:31; Start 01/20/22 at 12:00 Potassium Chloride/Dextrose/ Sod Cl 1,000 ml @ 100 mls/hr Q10H ONCE IV Last administered on 01/22/22at 15:03; Start 01/22/22 at 13:00; Stop 01/22/22 at 22:59; Status DC Saliva Substitute (Biotene Moisturizing Mouth) 2 spray PRN Q15MIN PRN PO DRY MOUTH; Start 01/22/22 at 12:30 Gadoterate Meglumine (Clariscan) 15 ml 1X ONCE IVP Last administered on 01/22/22at 16:10; Start 01/22/22 at 15:15; Stop 01/22/22 at 15:16; Status DC Haloperidol (Haldol) 5 mg 1X ONCE PO ; Start 01/23/22 at 09:00; Stop 01/23/22 at 09:01; Status DC Active Scripts Active Cozaar (Losartan Potassium) 50 Mg Tablet 50 Mg PO DAILY 30 Days Aspirin Ec (Aspirin) 81 Mg Tablet.dr 81 Mg PO DAILYWBKFT 30 Days Carvedilol (Carvedilol) 6.25 Mg Tablet 6.25 Mg PO BIDWMEALS 30 Days Amlodipine Besylate 10 Mg Tablet 10 Mg PO DAILY 30 Days Vitals/I & O Vital Sign - Last 24 Hours 01/23/22 01/23/22 01/23/22 01/23/22 11:00 15:00 17:00 19:17 Temp 98.0 97.9 98.0 97.9 Pulse 82 71 71 Resp 18 18 B/P (MAP) 147/81 (103) 109/67 (81) 109/67 Pulse Ox 96 98 O2 Delivery Room Air Room Air Room Air 01/23/22 01/23/22 01/24/22 01/24/22 19:41 22:58 02:41 07:00 Temp 98.1 98.0 98.0 97.8 98.1 98.0 98.0 97.8 Pulse 71 73 69 72 Resp 18 19 19 18 B/P (MAP) 115/56 (75) 143/83 (103) 150/82 (104) 125/88 (100) Pulse Ox 96 97 99 96 O2 Delivery Room Air Room Air Room Air Room Air 01/24/22 01/24/22 01/24/22 01/24/22 08:00 08:28 08:28 08:29 Pulse 72 72 72 B/P (MAP) 125/88 125/88 125/88 O2 Delivery Room Air Intake and Output 0 01/23/22 01/23/22 01/24/22 15:00 23:00 07:00 Intake Total 200 ml 300 ml Output Total 200 ml Balance 0 ml 300 ml Images MRI BRAIN WO+W History:Reason: brainstem swelling 15mL CLARISCAN / Spl. Instructions: / History: Technique: Multiplanar, multi sequential without and with intravenous contrast MR imaging was performed of the brain. Comparison: January 20, 2022 Findings: Motion degraded evaluation. Acute left superior frontal subcortical infarct (series [id number] image #50) additional acute infarct within the right occipital lobe (image 39). Extensive T2 and FLAIR hyperintensities throughout the brainstem with involvement of the middle cerebral peduncles and cerebellar peduncles as well as extension into the left cerebellum. There is expansion of the brainstem predominantly within the [place]. Overall similar extent compared to prior. No enh ancement. Mild dilatation of the lateral and third ventricles. There is confluent periventricular FLAIR hyperintensity, unchanged. Mild inferior cerebellar tonsillar ectopia, unchanged. Right posterior scalp subcutaneous lobulated mass measures 1.4 x 1.6 cm, similar compared to prior. Imaged orbits are unremarkable. Complete opacification of the right maxillary sinus with expansion into the ostiomeatal unit. Partial opacification of right ethmoid air cells. Impression: 1. Motion degraded evaluation. 2. Acute left frontal and right occipital infarcts. 3. Extensive edema throughout the brainstem and adjacent structures with exp ansion of the [place] and adjacent mass effect, unchanged. Findings can be seen with posterior reversible encephalopathy syndrome, encephalitis, toxic etiology or metabolic process. Recommend continued follow-up. 4. Unchanged mild dilatation of the lateral and third ventricles with periventricular signal abnormality, may represent transependymal edema. 5. Complete opacification of the right maxillary sinus with expansion of the ostiomeatal unit, may represent mucocele. 6. Right posterior scalp lobulated lesion. Recommend further clinical evaluation. Justicifation of Admission Dx: Justifications for Admission: Justification of Admission Dx: Yes Hypertension: New-Onset ENRIQUETA FITCH MD Jan 24, 2022 10:43
[2022-01-24 10:54] VITALS: BP 139/81
--- NOTE | 2022-01-24 11:43 | PDOC ---
[facility] PROGRESS NOTE Date of Service DOS: DATE: 01/24/22 TIME: 11:42 Chief Complaint Chief Complaint Small acute stroke, left parasagittal parietal cortex, White matter disease of the brainstem and middle cerebellar peduncles. Posterior Reversible Encephalopathy Syndrome Dysarthria, ataxia, some confusion, related to alcohol use as well as the PRES Alcohol abuse, withdrawl disorder tobacco abuse disorder Hypertension, urgenccy on admti, History of Present Illness History of Present Illness 01/24, way better today, some heel to toe walkgin, diong well, I saw with PT, discussed with family, to acute rehab soon, today or tomorrow oK 01/23, swallow eval better this afternoon, more calm was hallucinating and agitated this AM, PO haldol x1 given, he was then l ethargic but calm and coherent and motivated. followed directions 100%, needs rehab, cannot transfer well, eating better 01/22, out of ICU, Neuro followintg will repeat MRI needs rehab placement 01/21: Patient evaluated in ICU with at bedside. She reports some hallucinations overnight, and admits to history of alcohol abuse. Patient currently on CIWA protocol. No new or worsening neurological symptoms. MRI showed only one single tiny focus of acute ischemia at the left parasagittal parietal cortex, profound white matter disease especially involving the brainstem and middle cerebellar peduncles with nonspecific appearance that could be secondary to a toxic or metabolic insult or could be PRESS. Given the swelling of the [place] a neoplasm such as lymphoma or glioma should be considered. We will continue current medications and continue to follow neurology recommendations. 30 minutes critical care time spent reviewing charts, reviewing labs, reviewing imaging, discussion with patient's , and discussed with RN. Vitals/I&O Vitals/I&O: Vital Signs Date Time Temp Pulse Resp B/P (MAP) Pulse Ox O2 Delivery O2 Flow Rate FiO2 01/24/22 10:54 97.2 97 18 139/81 (100) 100 Room Air 97.2 I & O 01/23/22 01/23/22 01/24/22 15:00 23:00 07:00 Intake Total 200 ml 300 ml Output Total 200 ml Balance 0 ml 300 ml Physical Exam General: Alert, Oriented X3, Cooperative, No acute distress Heart: Regular rate Lungs: Clear Abdomen: Soft, No tenderness Extremities: No clubbing, No cyanosis Skin: No rashes, No breakdown Assessment and Plan Assessmemt and Plan Problems Medical Problems: (1) Brainstem stroke Status: Acute Comment Review of Relevant I have reviewed the following items lauren (where applicable) has been applied. Justifications for Admission Other Justification EKATERINA VILLALOBOS MD Jan 24, 2022 11:43
--- NOTE | 2022-01-24 13:16 | NUR ---
SS following up with discharge planning. SS reviewed pt chart and discussed with pt RN. Pt is currently on room air. COVID19 negative. PT/OT recommended acute rehabilitation. Pt accepted at [facility], ; fax [phone], pending insurance approval. SS will continue to follow for discharge planning.
[2022-01-24 15:00] VITALS: BP 126/79
[2022-01-24 19:06] VITALS: BP 140/80
--- NOTE | 2022-01-24 20:00 | NUR ---
Pt in bed assessment completed vss poc explained pt denied pain at this time will resume care and continue to monitor pt. Pt bed alarm set call light in reach.
[2022-01-24] MEDS: ATORVASTATIN CALCIUM 40 MG TABLET. PO SCH (21:55)
[2022-01-24 22:29] VITALS: BP 160/86
[2022-01-25 03:00] VITALS: BP 150/68
[2022-01-25 05:22] LABS: CREATININE 1.3 mg/dL (0.7-1.3); GFR 60.5
[2022-01-25 06:46] LABS: BASO # 0.1 x10^3/uL (0.0-0.2); BASO % 1 % (0-3); EOS # 0.2 x10^3/uL (0.0-0.7); EOS % 3 % (0-3); HEMATOCRIT 37.7 % (39.0-53.0); HEMOGLOBIN 12.8 g/dL (13.0-17.5); LYMPH # 1.7 x10^3/uL (1.0-4.8); LYMPH % 30 % (24-48); MEAN CORPUSCULAR HEMOGLOBIN 35 pg (25-35); MEAN CORPUSCULAR HGB CONC 34 g/dL (31-37); MEAN CORPUSCULAR VOLUME 104 fL (79-100); MONO # 0.7 x10^3/uL (0.0-1.1); MONO % 13 % (0-9); NEUT # 2.9 x10^3/uL (1.8-7.7); NEUT % 52 % (31-73); PLATELET COUNT 180 x10^3/uL (140-400); RED BLOOD COUNT 3.64 x10^6/uL (4.30-5.70); RED CELL DISTRIBUTION WIDTH 13.1 % (11.5-14.5); WHITE BLOOD COUNT 5.6 x10^3/uL (4.0-11.0)
[2022-01-25 07:00] VITALS: BP 140/84
[2022-01-25] MEDS: ASPIRIN ENTERIC COATED 81 MG TABLET.DR. PO SCH (08:23)
[2022-01-25] MEDS: CARVEDILOL 6.25 MG TABLET. PO SCH (08:23)
[2022-01-25 08:24] VITALS: BP 140/84
[2022-01-25] MEDS: NICOTINE 21MG PATCH. TD SCH (08:25)
[2022-01-25] MEDS ORDERED: THIAMINE 100 MG TABLET. PO SCH (09:00)
[2022-01-25] MEDS ORDERED: FOLIC ACID 1 MG TABLET. PO SCH (09:00)
[2022-01-25] MEDS: ENOXAPARIN 40 MG/0.4 ML SYRINGE. SQ SCH (11:00)
[2022-01-25] MEDS ORDERED: ATOR20TA58 PO (11:45)
[2022-01-25] MEDS ORDERED: MULT-237 PO (11:45)
[2022-01-25] MEDS ORDERED: LORA-434 PO (11:46)
--- NOTE | 2022-01-25 11:47 | SNU/HH DC ---
DISCHARGE ORDERS DISCHARGE INFORMATION: DISCHARGE DATE: Jan 25, 2022 FINAL DIAGNOSIS Posterior reversible encephalopathy htn hyperlipids TIA Problems Medical Problems: (1) Brainstem stroke Status: Acute CONDITION ON DISCHARGE: Stable CODE STATUS: Code Status: Full CUSTODIAL: SNF STAY <30 DAYS: Yes (ACUTE REHAB) POST DISCHARGE ORDERS: ACTIVITY ORDERS: Activity as tolerated WEIGHT BEARING STATUS: As tolerated DIET AFTER DISCHARGE: Regular CHECKS AFTER DISCHARGE: CHECKS AFTER DISCHARGE: Check blood press - daily TREATMENT/EQUIPMENT ORDERS: ADAPTIVE EQUIPMENT NEEDED: Front wheeled walker Physical Therapy For: Evalulation/Treatment Occupational Therapy For: Evaluation/Treatment Speech Language Pathology For: Evaluation/Treatment DISCHARGE MEDICATIONS: Home Meds Active Scripts Lorazepam (ATIVAN) 1 Mg Tablet, 1 MG PO BID PRN for ANXIETY, #30 TAB Prov:EKATERINA VILLALOBOS MD 01/25/22 Atorvastatin Calcium (ATORVASTATIN CALCIUM) 20 Mg Tablet, 1 TAB PO DAILY for prevent stroke, #30 TAB 5 Refills Prov:EKATERINA VILLALOBOS MD 01/25/22 Multivitamin With Minerals (DAILY VITAMIN FORMULA-MINERALS) 1 Each Tablet, 1 TAB PO DAILY for vitamin for 30 Days, #30 TAB 0 Refills Prov:EKATERINA VILLALOBOS MD 01/25/22 Losartan Potassium (COZAAR ) 50 Mg Tablet, 50 MG PO DAILY for HTN for 30 Days, #30 TAB 11 Refills Prov:JOHNNA JIMÉNEZ MD 01/19/22 Aspirin (ASPIRIN EC) 81 Mg Tablet.dr, 81 MG PO DAILYWBKFT for CHF for 30 Days, #30 TAB.SR 11 Refills Prov:JOHNNA JIMÉNEZ MD 01/19/22 Carvedilol (CARVEDILOL ) 6.25 Mg Tablet, 6.25 MG PO BIDWMEALS for HTN/CHF for 30 Days, #60 TAB 11 Refills Prov:JOHNNA JIMÉNEZ MD 01/19/22 Amlodipine Besylate (AMLODIPINE BESYLATE) 10 Mg Tablet, 10 MG PO DAILY for HTN for 30 Days, #30 TAB 11 Refills Prov:JOHNNA JIMÉNEZ MD 01/19/22 Discontinued Reported Medications Info (NO KNOWN MEDICATIONS PRIOR TO ADMISSTION) Each, 1 EACH for , EACH 01/19/22 EKATERINA VILLALOBOS MD Jan 25, 2022 11:47
--- NOTE | 2022-01-25 11:55 | NUR ---
SS following up with discharge planning. SS reviewed pt chart and discussed with pt RN. Pt is currently on room air. COVID19 negative. PT/OT recommended acute rehabilitation. Pt accepted at [facility], ; fax [phone]. Insurance approval received. Discharge orders received and sent to [facility]. Pt will discharge today and go to [facility] at 1330. [facility] to provide transportation. Pt and pt's RN notified.
--- NOTE | 2022-01-25 13:10 | PDOC3 ---
Discharge Summary Visit Information Date of Admission: Jan 20, 2022 Date of Discharge: Jan 25, 2022 Final Diagnosis concern for Small acute stroke, left parasagittal parietal cortex, White matter disease of the brainstem and middle cerebellar peduncles. Posterior Reversible Encephalopathy Syndrome Dysarthria, ataxia, some confusion, related to alcohol use as well as the PRES Alcohol abuse diorder, not daily use acute encephalopathy imrpoved, with PRES improvemnt tobacco abuse disorder Hypertension, urgenccy on admti, Problems Medical Problems: (1) Brainstem stroke Status: Acute Brief Hospital Course Allergies Allergies Coded Allergies Type Severity Reaction Last Updated Verified No Known Drug Allergies 01/16/21 No Vital Signs Vital Signs Date Time Temp Pulse Resp B/P (MAP) Pulse Ox O2 Delivery O2 Flow Rate FiO2 01/25/22 08:24 64 140/84 01/25/22 08:00 Room Air 01/25/22 07:00 97.4 18 96 97.4 Lab Results Laboratory Tests Test 01/25/22 02:30 White Blood Count 5.6 x10^3/uL (4.0-11.0) Red Blood Count 3.64 x10^6/uL (4.30-5.70) Hemoglobin 12.8 g/dL (13.0-17.5) Hematocrit 37.7 % (39.0-53.0) Mean Corpuscular Volume 104 fL (79-100) Mean Corpuscular Hemoglobin 35 pg (25-35) Mean Corpuscular Hemoglobin Concent 34 g/dL (31-37) Red Cell Distribution Width 13.1 % (11.5-14.5) Platelet Count 180 x10^3/uL (140-400) Neutrophils (%) (Auto) 52 % (31-73) Lymphocytes (%) (Auto) 30 % (24-48) Monocytes (%) (Auto) 13 % (0-9) Eosinophils (%) (Auto) 3 % (0-3) Basophils (%) (Auto) 1 % (0-3) Neutrophils # (Auto) 2.9 x10^3/uL (1.8-7.7) Lymphocytes # (Auto) 1.7 x10^3/uL (1.0-4.8) Monocytes # (Auto) 0.7 x10^3/uL (0.0-1.1) Eosinophils # (Auto) 0.2 x10^3/uL (0.0-0.7) Basophils # (Auto) 0.1 x10^3/uL (0.0-0.2) Creatinine 1.3 mg/dL (0.7-1.3) Estimated GFR (Cockcroft-Gault) 60.5 Laboratory Tests Test 01/25/22 02:30 White Blood Count 5.6 x10^3/uL (4.0-11.0) Red Blood Count 3.64 x10^6/uL (4.30-5.70) Hemoglobin 12.8 g/dL (13.0-17.5) Hematocrit 37.7 % (39.0-53.0) Mean Corpuscular Volume 104 fL (79-100) Mean Corpuscular Hemoglobin 35 pg (25-35) Mean Corpuscular Hemoglobin Concent 34 g/dL (31-37) Red Cell Distribution Width 13.1 % (11.5-14.5) Platelet Count 180 x10^3/uL (140-400) Neutrophils (%) (Auto) 52 % (31-73) Lymphocytes (%) (Auto) 30 % (24-48) Monocytes (%) (Auto) 13 % (0-9) Eosinophils (%) (Auto) 3 % (0-3) Basophils (%) (Auto) 1 % (0-3) Neutrophils # (Auto) 2.9 x10^3/uL (1.8-7.7) Lymphocytes # (Auto) 1.7 x10^3/uL (1.0-4.8) Monocytes # (Auto) 0.7 x10^3/uL (0.0-1.1) Eosinophils # (Auto) 0.2 x10^3/uL (0.0-0.7) Basophils # (Auto) 0.1 x10^3/uL (0.0-0.2) Creatinine 1.3 mg/dL (0.7-1.3) Estimated GFR (Cockcroft-Gault) 60.5 Brief Hospital Course Mr. Noland is a 41 old male, admit to ICU for suspected stroke, concern at first, but imaging more consistent with PRES, symptoms marked at day 3 admit still, couldnt walk, couldnt eat at day 2, imrpoved markedly over a few days, could get up to walker and move. 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 to acute rehab hospital, treatment plan same as stroke for the PRES and acute encephalopathy Discharge Information Condition at Discharge: Improved Follow Up: Weeks Disposition/Orders: D/C to Another Facility Scheduled Amlodipine Besylate (Amlodipine Besylate) 10 Mg Tablet, 10 MG PO DAILY for HTN for 30 Days, #30 Ref 11 Prescribed by: JOHNNA JIMÉNEZ MD on 01/19/221545 Last Action: Continued on 01/20/221029 by NOAM SARGENT MD Aspirin (Aspirin Ec) 81 Mg Tablet.dr, 81 MG PO DAILYWBKFT for CHF for 30 Days, #30 Ref 11 Prescribed by: JOHNNA JIMÉNEZ MD on 01/19/221545 Last Action: Continued on 01/20/221029 by NOAM SARGENT MD Atorvastatin Calcium (Atorvastatin Calcium) 20 Mg Tablet, 1 TAB PO DAILY for prevent stroke, #30 Ref 5 Prescribed by: EKATERINA VILLALOBOS on 01/25/221144 Carvedilol (Carvedilol ) 6.25 Mg Tablet, 6.25 MG PO BIDWMEALS for HTN/CHF for 30 Days, #60 Ref 11 Prescribed by: JOHNNA JIMÉNEZ MD on 01/19/221545 Last Action: Continued on 01/20/221029 by NOAM SARGENT MD Losartan Potassium (Cozaar ) 50 Mg Tablet, 50 MG PO DAILY for HTN for 30 Days, #30 Ref 11 Prescribed by: JOHNNA JIMÉNEZ MD on 01/19/22 170 Last Action: Continued on 01/20/221029 by NOAM SARGENT MD Multivitamin With Minerals (Daily Vitamin Formula-Minerals) 1 Each Tablet, 1 TAB PO DAILY for vitamin for 30 Days, #30 Ref 0 Prescribed by: EKATERINA VILLALOBOS on 01/25/22 114 Scheduled PRN Lorazepam (Ativan) 1 Mg Tablet, 1 MG PO BID PRN for ANXIETY, #30 Prescribed by: EKATERINA VILLALOBOS on 01/25/221145 Discontinued Medications Info (No Known Medications Prior To Admisstion) Each, 1 EACH for , (Reported) Entered as Reported by: Malinda Tesfaye on 01/19/22 0618 Patient Instructions Patient Instructions face to face and plan discussed 39 minutes total for coordination and plan Justicifation of Admission Dx: Justifications for Admission: Justification of Admission Dx: Yes Hypertension: New-Onset EKATERINA VILLALOBOS MD Jan 25, 2022 13:10
--- NOTE | 2022-01-25 13:11 | PDOC ---
PROGRESS NOTES Date of Service DATE: 01/25/22 TIME: 13:09 Assessment Problems Medical Problems: (1) Brainstem stroke Status: Acute Confusion much better, no incontinence Small acute stroke, left parasagittal parietal cortex, not clinically germane. White matter disease, edema, especially involving the brainstem and middle cerebellar peduncles. 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 Rule out other causes. Mass involving the ethmoid air cells on the right and the right osteal complex with opacification of the right maxillary sinus. Small cutaneous mass posteriorly on the right. Dysarthria, ataxia, some confusion, related to alcohol use as well as the PRES Hypoplastic but patent right vertebral artery. Alcohol and tobacco use Lipid profile normal Hypertension. Plan Continue current blood pressure medicines Continue statin Aspirin Repeat MRI of the brain with and without contrast in 2 weeks, or earlier if there are clinical changes Alcohol withdrawal protocol Nicotine patch Hold on transfer to a tertiary center given stability of the MRI results [facility]. Also discussed with patient's and brother Subjective No complaints Objective Vital Signs Date Time Temp Pulse Resp B/P (MAP) Pulse Ox O2 Delivery O2 Flow Rate FiO2 01/25/22 08:24 64 140/84 01/25/22 08:00 Room Air 01/25/22 07:00 97.4 18 96 97.4 Intake and Output 01/25/22 07:00 Intake Total 810 ml Output Total 100 ml Balance 710 ml Intake Oral 810 ml Output Urine Total 100 ml PHYSICAL EXAM Alert, oriented to person, place, time PERRL. EOMI. CN: no focal findings. Muscle tone: normal. Muscle strength: 4/5 DTR: 2+ Plantar reflex: Flexor Gait: not examined in bed. Sensory exam: no abnormal findings. No cerebellar signs elicited. Review of Relevant I have reviewed the following items lauren (where applicable) has been applied. Labs Laboratory Tests Test 01/25/22 02:30 White Blood Count 5.6 x10^3/uL (4.0-11.0) Red Blood Count 3.64 x10^6/uL (4.30-5.70) Hemoglobin 12.8 g/dL (13.0-17.5) Hematocrit 37.7 % (39.0-53.0) Mean Corpuscular Volume 104 fL (79-100) Mean Corpuscular Hemoglobin 35 pg (25-35) Mean Corpuscular Hemoglobin Concent 34 g/dL (31-37) Red Cell Distribution Width 13.1 % (11.5-14.5) Platelet Count 180 x10^3/uL (140-400) Neutrophils (%) (Auto) 52 % (31-73) Lymphocytes (%) (Auto) 30 % (24-48) Monocytes (%) (Auto) 13 % (0-9) Eosinophils (%) (Auto) 3 % (0-3) Basophils (%) (Auto) 1 % (0-3) Neutrophils # (Auto) 2.9 x10^3/uL (1.8-7.7) Lymphocytes # (Auto) 1.7 x10^3/uL (1.0-4.8) Monocytes # (Auto) 0.7 x10^3/uL (0.0-1.1) Eosinophils # (Auto) 0.2 x10^3/uL (0.0-0.7) Basophils # (Auto) 0.1 x10^3/uL (0.0-0.2) Creatinine 1.3 mg/dL (0.7-1.3) Estimated GFR (Cockcroft-Gault) 60.5 Laboratory Tests Test 01/25/22 02:30 White Blood Count 5.6 x10^3/uL (4.0-11.0) Red Blood Count 3.64 x10^6/uL (4.30-5.70) Hemoglobin 12.8 g/dL (13.0-17.5) Hematocrit 37.7 % (39.0-53.0) Mean Corpuscular Volume 104 fL (79-100) Mean Corpuscular Hemoglobin 35 pg (25-35) Mean Corpuscular Hemoglobin Concent 34 g/dL (31-37) Red Cell Distribution Width 13.1 % (11.5-14.5) Platelet Count 180 x10^3/uL (140-400) Neutrophils (%) (Auto) 52 % (31-73) Lymphocytes (%) (Auto) 30 % (24-48) Monocytes (%) (Auto) 13 % (0-9) Eosinophils (%) (Auto) 3 % (0-3) Basophils (%) (Auto) 1 % (0-3) Neutrophils # (Auto) 2.9 x10^3/uL (1.8-7.7) Lymphocytes # (Auto) 1.7 x10^3/uL (1.0-4.8) Monocytes # (Auto) 0.7 x10^3/uL (0.0-1.1) Eosinophils # (Auto) 0.2 x10^3/uL (0.0-0.7) Basophils # (Auto) 0.1 x10^3/uL (0.0-0.2) Creatinine 1.3 mg/dL (0.7-1.3) Estimated GFR (Cockcroft-Gault) 60.5 Medications Current Medications Iohexol (Omnipaque 350 Mg/ml) 75 ml 1X ONCE IV Last administered on 01/19/22at 23:00; Start 01/19/22 at 23:00; Stop 01/19/22 at 23:03; Status DC Info (CONTRAST GIVEN -- Rx MONITORING) 1 each PRN DAILY PRN MC SEE COMMENTS; Start 01/19/22 at 23:15; Stop 01/21/22 at 23:14; Status DC Aspirin ([place] Aspirin) 325 mg 1X ONCE PO Last administered on 01/20/22at 00:42; Start 01/20/22 at 00:30; Stop 01/20/22 at 00:36; Status DC Sodium Chloride (Normal Saline Flush) 3 ml QSHIFT PRN IV AFTER MEDS AND BLOOD DRAWS; Start 01/20/22 at 02:00 Lorazepam (Ativan) 4 mg PRN Q1HR PRN PO For CIWA 8-14 Last administered on 01/21/22at 12:36; Start 01/20/22 at 10:30 Lorazepam (Ativan) 8 mg PRN Q1HR PRN PO For CIWA 15 or greater Last administered on 01/20/22at 15:28; Start 01/20/22 at 10:30 Lorazepam (Ativan Inj) 2 mg PRN Q1HR PRN IV For CIWA 8-14 Last administered on 01/22/22at 21:43; Start 01/20/22 at 10:30 Lorazepam (Ativan Inj) 4 mg PRN Q1HR PRN IV For CIWA 15 or greater; Start 01/20/22 at 10:30 Lorazepam (Ativan Inj) 1 mg 1X ONCE IVP ; Start 01/20/22 at 10:30; Stop 01/20/22 at 10:31; Status Cancel Amlodipine Besylate (Norvasc) 10 mg DAILY PO Last administered on 01/25/22at 08:24; Start 01/20/22 at 11:00 Aspirin (Ecotrin) 81 mg DAILYWBKFT PO Last administered on 01/25/22at 08:23; Start 01/21/22 at 08:00 Carvedilol (Coreg) 6.25 mg BIDWMEALS PO Last administered on 01/25/22at 08:23; Start 01/20/22 at 11:00 Losartan Potassium (Cozaar) 50 mg DAILY PO Last administered on 01/24/22at 08:28; Start 01/20/22 at 11:00; Stop 01/24/22 at 15:07; Status DC Atorvastatin Calcium (Lipitor) 40 mg QHS PO Last administered on 01/24/22at 21:55; Start 01/20/22 at 21:00 Hydralazine HCl (Apresoline Inj) 10 mg PRN Q4HRS PRN IVP ELEVATED BP, SEE COMMENTS; Start 01/20/22 at 10:45 Acetaminophen (Tylenol) 650 mg PRN Q6HRS PRN PO Headaches, Temp > 101.5' Last administered on 01/21/22at 12:37; Start 01/20/22 at 10:45 Ondansetron HCl (Zofran) 4 mg PRN Q6HRS PRN IVP NAUSEA/VOMITING; Start 01/20/22 at 10:45 Al Hydroxide/Mg Hydroxide (Mylanta Plus Xs) 30 ml PRN Q3HRS PRN PO HEARTBURN / GAS; Start 01/20/22 at 10:45 Calcium Carbonate/ Glycine (Tums) 500 mg PRN Q3HRS PRN PO HEARTBURN / GAS (1st Choice); Start 01/20/22 at 10:45 Zolpidem Tartrate (Ambien) 5 mg PRN QHS PRN PO INSOMNIA, MAY REPEAT IN 1HR; Start 01/20/22 at 10:45 Enoxaparin Sodium (Lovenox 40mg Syringe) 40 mg Q24H SQ Last administered on 01/24/22at 08:34; Start 01/20/22 at 11:00 Sodium Chloride (Normal Saline Flush) 3 ml QSHIFT PRN IV AFTER MEDS AND BLOOD DRAWS; Start 01/20/22 at 10:45 Lorazepam (Ativan Inj) 1 mg PRN 1X PRN IVP ANXIETY/AGITATION; Start 01/20/22 at 10:45 Nicotine (Nicoderm Cq 21mg) 1 patch DAILY TD Last administered on 01/25/22at 08:25; Start 01/20/22 at 12:00 Potassium Chloride/Dextrose/ Sod Cl 1,000 ml @ 100 mls/hr Q10H ONCE IV Last administered on 01/22/22at 15:03; Start 01/22/22 at 13:00; Stop 01/22/22 at 22:59; Status DC Saliva Substitute (Biotene Moisturizing Mouth) 2 spray PRN Q15MIN PRN PO DRY MOUTH; Start 01/22/22 at 12:30 Gadoterate Meglumine (Clariscan) 15 ml 1X ONCE IVP Last administered on 01/22/22at 16:10; Start 01/22/22 at 15:15; Stop 01/22/22 at 15:16; Status DC Haloperidol (Haldol) 5 mg 1X ONCE PO ; Start 01/23/22 at 09:00; Stop 01/23/22 at 09:01; Status DC Losartan Potassium (Cozaar) 50 mg QHS PO ; Start 01/25/22 at 21:00 Folic Acid (Folic Acid) 1 mg DAILY PO Last administered on 01/25/22at 08:29; Start 01/25/22 at 09:00 Thiamine Mononitrate (Vitamin B-1) 100 mg DAILY PO Last administered on 01/25/22at 08:23; Start 01/25/22 at 09:00 Active Scripts Active Ativan (Lorazepam) 1 Mg Tablet 1 Mg PO BID PRN Atorvastatin Calcium 20 Mg Tablet 1 Tab PO DAILY Daily Vitamin Formula-Minerals (Multivitamin With Minerals) 1 Each Tablet 1 Tab PO DAILY 30 Days Cozaar (Losartan Potassium) 50 Mg Tablet 50 Mg PO DAILY 30 Days Aspirin Ec (Aspirin) 81 Mg Tablet.dr 81 Mg PO DAILYWBKFT 30 Days Carvedilol (Carvedilol) 6.25 Mg Tablet 6.25 Mg PO BIDWMEALS 30 Days Amlodipine Besylate 10 Mg Tablet 10 Mg PO DAILY 30 Days Vitals/I & O Vital Sign - Last 24 Hours 01/24/22 01/24/22 01/24/22 01/24/22 15:00 18:24 19:06 20:00 Temp 97.7 97.7 97.7 97.7 Pulse 68 68 76 Resp 18 18 B/P (MAP) 126/79 (95) 126/79 140/80 (100) Pulse Ox 100 99 O2 Delivery Room Air Room Air Room Air 01/24/22 01/25/22 01/25/22 01/25/22 22:29 03:00 07:00 08:00 Temp 97.9 97.8 97.4 97.9 97.8 97.4 Pulse 69 72 64 Resp 18 18 18 B/P (MAP) 160/86 (110) 150/68 (95) 140/84 (102) Pulse Ox 98 96 96 O2 Delivery Room Air Room Air Room Air Room Air 01/25/22 01/25/22 08:23 08:24 Pulse 64 64 B/P (MAP) 140/84 140/84 Intake and Output 01/24/22 01/24/22 01/25/22 15:00 23:00 07:00 Intake Total 430 ml 180 ml 200 ml Output Total 100 ml Balance 430 ml 180 ml 100 ml Justicifation of Admission Dx: Justifications for Admission: Justification of Admission Dx: Yes Hypertension: New-Onset ENRIQUETA FITCH MD Jan 25, 2022 13:11
--- NOTE | 2022-01-25 15:48 | NUR ---
Discharge Note: TIFFANY HARRIS [address] Discharge instructions and discharge home medications reviewed with [facility] staff and a copy given. All questions have been answered and understanding verbalized.
[2022-01-25] MEDS ORDERED: LOSARTAN POTASSIUM 50 MG TABLET. PO SCH (21:00)
== END 2022-01-25 13:20 | DRG 64 ==
LOC: ER 22:17 → 1 WEST ICU 01-20 02:25 → 6 SOUTH 01-20 02:40 → ER 01-20 02:40 → 6 SOUTH 01-21 13:42
PROVIDERS: ADMIT Internal Medicine; ATTEND Internal Medicine
DX: I63.89 Other cerebral infarction (principal); I67.83 Posterior reversible encephalopathy syndrome; F10.239 Alcohol dependence with withdrawal, unspecified; I50.32 Chronic diastolic (congestive) heart failure; R47.01 Aphasia; I16.0 Hypertensive urgency; R47.1 Dysarthria and anarthria; R27.0 Ataxia, unspecified; E78.5 Hyperlipidemia, unspecified; F17.210 Nicotine dependence, cigarettes, uncomplicated; I11.0 Hypertensive heart disease with heart failure; R32 Unspecified urinary incontinence; Z82.49 Family history of ischemic heart disease and other diseases of the circulatory system; F41.9 Anxiety disorder, unspecified
CPT/HCPCS: 36415; 70450; 70496; 70498; 70551; 70553; 71045; 80053; 82565; 83880; 84484; 85025; 93005; A9575; G0480; J1650; J2060; J3480; Q9967; U0003; 92526-GN; 92610-GN; 97116-GP; 97530-GO; 97535-GO; 99285-25; G0378

== ENCOUNTER → 2022-02-22 | Outpatient (CLI) | payer BC ==
[2022-01-25 08:24] VITALS: BP 140/84
[~2022-02-22] MED LIST changes: +ATOR20TA58 PO; +LORA-434 PO; +MULT-237 PO
--- NOTE | 2022-02-22 12:03 | KCIC ---
EXAMINATION: Magnetic resonance imaging (MRI) of the brain and brainstem without contrast 02/22/2022 10 :05 AM HISTORY: Posterior reversible encephalopathy syndrome, unsteady gait TECHNIQUE: Multiplanar multi-weighted MRI of the brain and brainstem was performed without intravenou s contrast using the general brain protocol. COMPARISON: MRI brain 01/22/2022 FINDINGS: The scalp and calvarium are normal. The superior sagittal sinus demonstrates normal venous flow. The corpus callosum is normal in shape and signal intensity. The posterior fossa is unremarkable. The p ituitary and sella are normal. The brainstem and craniocervical junction are unremarkable. There are T2/FLAIR signal hyperintense foci in the periventricular and subcortical white matter with areas of confluence most suggestive of moderate chronic small vessel ischemic changes. Resolution of previousl y seen vasogenic edema within the brainstem and bilateral parietal and occipital lobes. New punctate foci of diffusion signal hyperintensity identified within the left superior frontal gyru s, right isthmus of the corpus callosum and right posterior [place] suspicious for acute lacunar infarct s. There is corresponding low signal on ADC maps. T2 signal hyperintensity compatible cytotoxic edema . The susceptibility weighted sequences reveal no evidence of acute or chronic hemorrhage. The ventri cles are normal in size and position without evidence of hydrocephalus. There is complete desiccation of the right maxillary sinus. The visualized portions of the mastoids are unremarkable. The orbits appear normal. Normal flow voids are demonstrated in the carotid arteri es and basilar artery. IMPRESSION: 1. Interval development of lacunar type infarcts involving the right [place], isthmus of the corpus call osum, and left superior frontal lobe. There is cytotoxic edema without mass effect, hemorrhage or mid line shift. 2. Interval resolution of diffuse vasogenic edema associated with posterior reversible encephalopathy syndrome. 3. There are T2/FLAIR signal hyperintense foci in the periventricular and subcortical white matter wi th areas of confluence most suggestive of moderate chronic small vessel ischemic changes. FOR INTERNAL CODING PURPOSES Critical result: Findings provided in a voicemail to the office of ENRIQUETA FITCH MD at 02/22/2022 12:00 PM. RESULT CODE: (C) Electronically signed by: Ashlee Cox MD (02/22/2022 12:01 PM) [facility]
== END ==
LOC: KCIC MRI 09:56
PROVIDERS: ATTEND Psychiatry & Neurology Neurology with Special Qualifications in Child Neurology
DX: I63.81 Other cerebral infarction due to occlusion or stenosis of small artery (principal); I67.83 Posterior reversible encephalopathy syndrome; J34.89 Other specified disorders of nose and nasal sinuses; R90.82 White matter disease, unspecified
CPT/HCPCS: 70551

== ENCOUNTER → 2022-03-16 | Outpatient (CLI) | payer BC ==
[~2022-03-16] MED LIST changes: +REGADENOSON 0.4 MG/5 ML DISP.SYRIN. IV ONE
--- NOTE | 2022-03-16 15:32 | RAD ---
MR#: [id number] Date of Study: 03/16/2022 Ordering Physician: HARJIT SAHNI, Referring Physician: PAULA BREWER Tech: RENEE Higuera, ARRT (R) (N) APPROVED REPORT Test Type: Pharmacological Stress Nurse/Tech: LEVAR YOU Test Indications: ELEVATED TROPONIN Cardiac History: CHF, HTN- SEE EMR Medications: SEE EMR Medical History: TIA, CHF, SMOKER- SEE EMR Resting ECG: SB Resting Heart Rate: 53 bpm Resting Blood Pressure: 124/71mmHg Pretest Chest Pain: No chest pain Nurse/Tech Notes S1,S2, LUNGS CLEAR/DIMINISHED AT BASES, PT DENIED CHEST PAIN OR SHORTNESS OF BREATH AT THIS TIME. VSS . NO OTHER COMPLAINTS. Consent: The procedure was explained to the patient in lay terms. Informed consent was witnessed. Jack eout was entered into [employer]. History and Stress Test performed by Nick Jeter, (R) (N) Pharm. Details Pharmacologic stress testing was performed using 0.4mg per 5ml of regadenoson given intravenously ove r 7-10 seconds. Stress Symptoms PT HAD SHORTNESS OF DURING THE INITIAL FEW MINUTES OF TESTING, DENIED CHEST PAIN OR PRESSURE. SOA RES OLVED, NO FURTHER COMPLAINTS. VSS. POST EXERCISE Reason for Termination: Infusion complete Max HR: 91 bpm Max Blood Pressure: 148/66mmHg Blood Pressure response to exercise: Normal blood pressure response during stress. Heart Rate response to exercise: WNL Chest Pain: No. Arrhythmia: . NO SIGNIFICANT CHANGES NOTED FROM BASELINE EKG. INTERPRETATION Stress EKG Conclusion: The resting EKG shows a sinus rhythm with nonspecific ST segment changes and a septal Q wave. The stress EKG shows no significant changes from baseline. Abnormal baseline EKG but no EKG evidence of stress-induced ischemia. Imaging Protocol IMAGE PROTOCOL: Rest Tc-99m/stress Tc-99m 1 day Rest: Stress: Viability: Radiopharm.Tc99m QctvhazneGi47m Sestamibi Xoll67xUn 33mCi Img Date 03/16/2022 03/16/2022 Inj-Img [id number]. 60min. Rest Admin Site:IV - Left AntecubitalAdministrator:RENEE Higuera, ARRT (R)(N) Stress Admin Site: IV - Left AntecubitalAdministrator: Nick Jeter, RT (R)(N) STRESS DATA End Diast. Vol.107.0mlLVEDV index BSA48.0ml End Syst. Vol.35.0mlLVESV index BSA15.0ml Myocardial Cuzp045.0gEject. Ykdmmnsj47.0% Stress Scores Regional WT0.00Summed WT12.00 Regional WM0.00Summed WM1.00 LV Perfusion The stress scans showed no significant defects. The rest scans showed no significant defects. Nuclear imaging shows no reversible ischemia or infarct. Wall Motion Intact LV systolic function with an ejection fraction of 70%. LV Perf. Quant 17 Seg. SSS5.00 17 Seg. SRS4.00 17 Seg. SDS2.00 Stress Defect Extent (% LAD)0.00Rest Defect Extent (% LAD)0.00Rev. Defect Extent (% LAD)0.00 Stress Defect Extent (% LCX) 40.00Rest Defect Extent (% LCX)8.80Rev. Defect Extent (% LCX)26.30 Stress Defect Extent (% RCA)0.00Rest Defect Extent (% RCA)0.00Rev. Defect Extent (% RCA)0.00 Stress Defect Extent (% SAUL)7.80Rest Defect Extent (% SAUL)2.00Rev. Defect Extent (% SAUL)5.40 Conclusion 1. Abnormal baseline EKG but no EKG evidence of stress-induced ischemia. 2. Nuclear imaging shows no reversible ischemia or infarct. 3. Intact LV systolic function with an ejection fraction of 70%. 4. Moderately low risk Lexiscan nuclear stress test. Signed by : Emanuel Hou MD Electronically Approved : 03/16/2022 15:32:22
== END ==
LOC: NM 07:11
PROVIDERS: ATTEND Internal Medicine Cardiovascular Disease
DX: R94.31 Abnormal electrocardiogram [ECG] [EKG] (principal); R74.8 Abnormal levels of other serum enzymes
CPT/HCPCS: 78452; 93017; A9500; J2785